=== PATIENT | male | born 1940 | race Two or more races ===

== ENCOUNTER 2016-11-21 19:43 | Inpatient (IN) | payer OTHER ==
[~2016-11-21] VITALS: Ht 170.2 cm; Wt 65.8 kg
[2016-11-21 21:46] LABS: BASOPHILS # (AUTO) 0.1 /CMM (0.0-0.2); BASOPHILS % (AUTO) 0.8 % (0.0-2.0); DIFF TOTAL % 100 %; EOSINOPHILS # (AUTO) 0.1 /CMM (0.0-0.7); EOSINOPHILS % (AUTO) 0.8 % (0.0-6.0); HEMATOCRIT 46 % (39-51); HEMOGLOBIN 15.3 g/dL (13.5-17.5); LYMPHOCYTES # (AUTO) 0.9 /CMM (0.8-4.8); LYMPHOCYTES % (AUTO) 10.8 % (20.0-44.0); MEAN CORPUSCULAR HEMOGLOBIN 31 PG (26.0-33.0); MEAN CORPUSCULAR HGB CONC 33 g/dl (31.0-36.0); MEAN CORPUSCULAR VOLUME 93 fL (80-96); MONOCYTES # (AUTO) 0.5 /CMM (0.1-1.30); MONOCYTES % (AUTO) 6.7 % (2.0-12.0); NEUTROPHILS # (AUTO) 6.4 /CMM (1.8-8.9); NEUTROPHILS % (AUTO) 80.9 % (43.0-81.0); PLATELET COUNT (AUTO) 86 /CMM (150-450); RED BLOOD CELL COUNT(AUTO) 4.98 MIL/uL (4.5-6.0)
[2016-11-21 21:55] LABS: ANION GAP 13 (5-14); CALCIUM, SERUM 8.8 mg/dL (8.5-10.1); CARBON DIOXIDE 24 mmol/L (21-32); CHLORIDE 100 mmol/L (98-107); CREATININE 1.3 mg/dL (0.6-1.3); GLUCOSE 117 mg/dL (74-106); POTASSIUM 3.2 mmol/L (3.5-5.1); SODIUM SERUM 134 mmol/L (136-145); UREA NITROGEN, BLOOD 23 mg/dL (7-18)
[2016-11-21] MEDS ORDERED: ONDANSETRON HCL/PF 4 MG/2 ML VIAL IVP ONE (22:00)
[2016-11-21] MEDS ORDERED: IV NS 0.9% 500 ML BAG IV ONE (22:00)
[2016-11-21] MEDS ORDERED: MORPHINE SULFATE INJ 2 MG/ML DISP.SYRIN IV ONE (22:00)
[2016-11-21 22:01] LABS: ALANINE AMINOTRANSFERASE 37 U/L (12-78); ALBUMIN 3.2 g/dL (3.4-5.0); ASPARTATE AMINOTRANSFERASE 66 U/L (15-37); BILIRUBIN,DIRECT 0.7 mg/dL (0.0-0.2); BILIRUBIN,TOTAL 1.5 mg/dL (0.2-1.0); INDIRECT BILIRUBIN 0.8 mg/dL (0.0-1.1); TOTAL PROTEIN, SERUM 7.3 g/dL (6.4-8.2)
[2016-11-21 22:03] LABS: TROPONIN I < 0.017 ng/mL (0.00-0.056)
[2016-11-21 22:10] LABS: LACTIC ACID 1.1 mmol/L (0.4-2.0)
[2016-11-21] MEDS ORDERED: ONDANSETRON HCL/PF 4 MG/2 ML VIAL ONE (22:27)
[2016-11-21] MEDS ORDERED: IV NS 0.9% 500 ML IV ONE (22:27)
[2016-11-21] MEDS ORDERED: MORPHINE SULFATE INJ 2 MG/ML DISP.SYRIN ONE (22:27)
[2016-11-21 23:21] LABS: KETONES,URINE 1+ (NEGATIVE); LEUKOCYTE ESTERASE ,URINE 2+ (NEGATIVE); PH,URINE 5.5 (5.0-8.0)
[2016-11-21 23:26] LABS: ADD UA MICROSCOPIC YES
[2016-11-21 23:33] LABS: ADD URINE CULTURE YES; RBC,URINE 0-2 /HPF (0-2); WBC,URINE TOO NUMEROUS TO COUN /HPF (0-3)
[2016-11-21] MEDS ORDERED: CEFTRIAXONE 1 G VIAL ONE (23:50)
[2016-11-21] MEDS ORDERED: IV D5W 50 ML IV ONE (23:50)
[2016-11-21] MEDS ORDERED: IV SET PRIMARY 1 EA INFUS.SET MC ONE (23:50)
[2016-11-22] MEDS ORDERED: CEFTRIAXONE 1GM BAG (ER ONLY) 1 GM/50 ML PIGGYBACK IV ONE
[2016-11-22] MEDS ORDERED: MAGNESIUM HYDROXIDE 30 ML UDC PO PRN (00:30)
[2016-11-22] MEDS ORDERED: ONDANSETRON HCL/PF 4 MG/2 ML VIAL IVP PRN (00:30)
[2016-11-22] MEDS ORDERED: ZOLPIDEM TARTRATE 5 MG TABLET PO PRN (00:30)
[2016-11-22] MEDS ORDERED: HYDROCODONE/APAP 5/325MG 1 EACH TABLET PO PRN (00:30)
[2016-11-22] MEDS ORDERED: ACETAMINOPHEN 325 MG TABLET PO PRN (00:30)
[2016-11-22 01:00] VITALS: BP 133/61
[2016-11-22] MEDS ORDERED: POTASSIUM CHLORIDE 20 MEQ TAB.PRT.SR PO ONE ×2 (02:24→02:30)
[2016-11-22] MEDS ORDERED: IV SET PRIMARY PUMP SET 1 EA INFUS.SET MC ONE (02:24)
[2016-11-22] MEDS ORDERED: IV NS 0.9% 1,000 ML ONE (02:24)
[2016-11-22] MEDS: IV NS 0.9% 1,000 ML IV PRN ×2 (02:32→12:56)
[2016-11-22 08:00] VITALS: BP_SYST 126; BP_SYST 143; BP_DIAS 68; BP_DIAS 70
[2016-11-22] MEDS: PANTOPRAZOLE 40 MG TABLET.DR PO SCH (08:10)
[2016-11-22 16:00] VITALS: BP_SYST 112; BP_SYST 143; BP_DIAS 67; BP_DIAS 68
[2016-11-22 20:00] VITALS: BP 132/66
[2016-11-23 04:05] VITALS: BP 151/72
[2016-11-23 07:02] LABS: BASOPHILS % (AUTO) 0.2 % (0.0-2.0); DIFF TOTAL % 100 %; EOSINOPHILS # (AUTO) 0.1 /CMM (0.0-0.7); EOSINOPHILS % (AUTO) 1.2 % (0.0-6.0); HEMATOCRIT 39 % (39-51); HEMOGLOBIN 13.5 g/dL (13.5-17.5); LYMPHOCYTES # (AUTO) 1.4 /CMM (0.8-4.8); LYMPHOCYTES % (AUTO) 24.9 % (20.0-44.0); MEAN CORPUSCULAR HEMOGLOBIN 31 PG (26.0-33.0); MEAN CORPUSCULAR HGB CONC 34 g/dl (31.0-36.0); MEAN CORPUSCULAR VOLUME 92 fL (80-96); MONOCYTES # (AUTO) 0.9 /CMM (0.1-1.30); NEUTROPHILS # (AUTO) 3.1 /CMM (1.8-8.9); NEUTROPHILS % (AUTO) 56.7 % (43.0-81.0); PLATELET COUNT (AUTO) 98 /CMM (150-450); RED BLOOD CELL COUNT(AUTO) 4.28 MIL/uL (4.5-6.0); WHITE BLOOD COUNT (AUTO) 5.4 K/uL (4.3-11.0)
[2016-11-23 07:16] LABS: CALCIUM, SERUM 7.9 mg/dL (8.5-10.1); CREATININE 0.6 mg/dL (0.6-1.3); PHOSPHORUS 2.6 mg/dL (2.5-4.9); POTASSIUM 3.5 mmol/L (3.5-5.1)
[2016-11-23 08:00] VITALS: BP 134/64
[2016-11-23 08:14] LABS: BAND % (MANUAL) 1 % (0.0-5.0); LYMPHOCYTES % (MANUAL) 20 % (16-48); PLATELET ESTIMATE DECREASED
[2016-11-23] MEDS: PANTOPRAZOLE 40 MG TABLET.DR PO SCH (08:37)
[2016-11-23] MEDS ORDERED: MAGNESIUM OXIDE 400 MG TABLET PO ONE (12:00)
[2016-11-23 12:03] VITALS: BP 128/60
[2016-11-23 16:00] VITALS: BP 131/58
[2016-11-23 20:00] VITALS: BP 135/71
[2016-11-23] MEDS ORDERED: CEFTRIAXONE 1 G in IV D5W 50 ML IV SCH (23:00)
[2016-11-23] MEDS ORDERED: SECONDARY IV SET 1 EA INFUS.SET MC ONE (23:35)
[2016-11-24 08:00] VITALS: BP 110/70
[2016-11-24] MEDS: PANTOPRAZOLE 40 MG TABLET.DR PO SCH (08:23)
[2016-11-24 16:00] VITALS: BP 138/70
[2016-11-24 20:00] VITALS: BP 147/72
[2016-11-25 04:00] VITALS: BP 143/80
[2016-11-25 08:00] VITALS: BP 168/75
[2016-11-25] MEDS: SULFAMETH/TRIMETH 800/160 MG 1 UDTAB TABLET PO SCH ×2 (08:28→21:13)
[2016-11-25] MEDS: PANTOPRAZOLE 40 MG TABLET.DR PO SCH (08:28)
[2016-11-25 16:00] VITALS: BP 153/66
[2016-11-25 20:00] VITALS: BP 152/72
[2016-11-26 04:00] VITALS: BP 138/70
[2016-11-26 08:00] VITALS: BP 139/72
[2016-11-26] MEDS: SULFAMETH/TRIMETH 800/160 MG 1 UDTAB TABLET PO SCH (08:31)
[2016-11-26] MEDS: PANTOPRAZOLE 40 MG TABLET.DR PO SCH (08:31)
[2016-11-26 16:00] VITALS: BP 130/62
== END 2016-11-26 18:27 | disposition home or self-care (01) | DRG 542 ==
LOC: ER 19:46 → MEDSG1 23:12
PROVIDERS: ADMIT Nurse Practitioner Acute Care; ATTEND Nurse Practitioner Acute Care
DX: M48.56XA Collapsed vertebra, not elsewhere classified, lumbar region, initial encounter for fracture (principal); N17.0 Acute kidney failure with tubular necrosis; G93.41 Metabolic encephalopathy; N39.0 Urinary tract infection, site not specified; E44.1 Mild protein-calorie malnutrition; E87.1 Hypo-osmolality and hyponatremia; B96.20 Unspecified Escherichia coli [E. coli] as the cause of diseases classified elsewhere; E83.42 Hypomagnesemia; E87.6 Hypokalemia; M48.06 Spinal stenosis, lumbar region; R29.6 Repeated falls; Z87.891 Personal history of nicotine dependence; D69.6 Thrombocytopenia, unspecified; E88.09 Other disorders of plasma-protein metabolism, not elsewhere classified; Z68.22 Body mass index [BMI] 22.0-22.9, adult; F10.21 Alcohol dependence, in remission; W19.XXXA Unspecified fall, initial encounter; Y93.9 Activity, unspecified; Y92.009 Unspecified place in unspecified non-institutional (private) residence as the place of occurrence of the external cause; Y99.9 Unspecified external cause status
CPT/HCPCS: 36415; 70450-TC; 71010-TC; 72131-TC; 72148-TC; 72192-TC; 80048-TC; 80061-TC; 80076-TC; 81000-TC; 83605-TC; 83735-TC; 84100-TC; 84484-TC; 85025-TC; 87040-TC; 87081-TC; 87086-TC; 87186-TC; 94799-TC; 97001-TC; 97116-TC; 97530-TC; A4606; J0696; J2270; J2405; J7030; J7040; J7060; Z7610

== ENCOUNTER 2018-01-12 12:15 | Inpatient (IN) | payer OTHER ==
[2018-01-12] VITALS (15 sets, daily range): BP systolic 140–186; BP diastolic 59–105
[~2018-01-12] VITALS: Ht 182.9 cm; Wt 82.8 kg
--- NOTE | 2018-01-12 12:18 | NUR ---
AAOX3, BIBRA 80 FROM HOME C/O R HIP PAIN, +SHORTENING, S/P TRIPPED AND FELL, -KO. 8MG IVP MORPHINE GIVEN IN THE FIELD. SKIN IS WARM AND DRY. PLACED ON THE MONITOR. DR MATHEWS AT FOR EVAL.
[2018-01-12] MEDS ORDERED: MORPHINE SULFATE INJ 4 MG/ML DISP.SYRIN ONE (12:22)
[2018-01-12] MEDS ORDERED: ONDANSETRON HCL/PF 4 MG/2 ML VIAL ONE ×2 (12:22→13:48)
[2018-01-12] MEDS ORDERED: LIDOCAINE 2% JEL UROJET 10 ML MM ONE (12:27)
[2018-01-12] MEDS ORDERED: MORPHINE SULFATE INJ 2 MG/ML DISP.SYRIN IV ONE (12:30)
[2018-01-12] MEDS ORDERED: ONDANSETRON HCL/PF 4 MG/2 ML VIAL IVP ONE (12:30)
[2018-01-12 12:48] LABS: BASOPHILS # (AUTO) 0.2 /CMM (0.0-0.2); BASOPHILS % (AUTO) 1.8 % (0.0-2.0); HEMATOCRIT 42 % (39-51); HEMOGLOBIN 14.1 g/dL (13.5-17.5); LYMPHOCYTES # (AUTO) 1.1 /CMM (0.8-4.8); LYMPHOCYTES % (AUTO) 10.3 % (20.0-44.0); MEAN CORPUSCULAR HGB CONC 34 g/dl (31.0-36.0); MEAN CORPUSCULAR VOLUME 87 fL (80-96); MONOCYTES # (AUTO) 0.4 /CMM (0.1-1.30); NEUTROPHILS # (AUTO) 8.8 /CMM (1.8-8.9); NEUTROPHILS % (AUTO) 83.9 % (43.0-81.0); PLATELET COUNT (AUTO) 185 /CMM (150-450); RDW COEFFICIENT OF VARIATION 12.9 (11.5-15.0); RED BLOOD CELL COUNT(AUTO) 4.84 MIL/uL (4.5-6.0); WHITE BLOOD COUNT (AUTO) 10.5 K/uL (4.3-11.0)
--- NOTE | 2018-01-12 12:55 | NUR ---
PATRICIA BEARDEN, MELBA CÁRDENAS PHARMACEUTICAL SCIENTIST
[2018-01-12 12:58] LABS: CALCIUM, SERUM 8.7 mg/dL (8.5-10.1); CARBON DIOXIDE 23 mmol/L (21-32); CHLORIDE 103 mmol/L (98-107); CREATININE 0.7 mg/dL (0.6-1.3); GLUCOSE 156 mg/dL (74-106); POTASSIUM 3.4 mmol/L (3.5-5.1); SODIUM SERUM 140 mmol/L (136-145); UREA NITROGEN, BLOOD 10 mg/dL (7-18)
[2018-01-12 13:01] LABS: INR 1.02 (0.85-1.15)
--- NOTE | 2018-01-12 13:02 | NUR ---
EPIC PAGED, TELEVISION NEWSCAST DIRECTOR
[2018-01-12 13:03] LABS: ALANINE AMINOTRANSFERASE 14 U/L (12-78); ALKALINE PHOSPHATASE 77 U/L (46-116); ASPARTATE AMINOTRANSFERASE 25 U/L (15-37); BILIRUBIN,DIRECT 0.2 mg/dL (0.0-0.2); BILIRUBIN,TOTAL 0.6 mg/dL (0.2-1.0)
[2018-01-12 13:05] LABS: TROPONIN I < 0.017 ng/mL (0.00-0.056)
--- NOTE | 2018-01-12 13:25 | NUR ---
MS 117-2, ALLISON IN THE NURSE
[2018-01-12] MEDS ORDERED: ONDANSETRON HCL/PF - ER 4 MG/2 ML VIAL IV ONE (13:30)
[2018-01-12] MEDS ORDERED: OYSCO-500 TABLET (13:56)
[2018-01-12] MEDS ORDERED: [UNRECOGNIZED DRUG - OTHER] (13:56)
[2018-01-12] MEDS ORDERED: FLUZONE HIGH-DOSE 2017-18 SYR (13:56)
--- NOTE | 2018-01-12 14:00 | NUR ---
REPORT GIVEN TO ALLISON COURTNEY FOR CONTINUITY OF CARE
--- NOTE | 2018-01-12 14:30 | NUR ---
RN NOTES RECEIVED PT FROM ER, A&0X3 PRIMARILY CROATIAN SPEAKING BUT UNDERSTANDS NIGERIEN. ON 2L NC SATING WELL NO SOB. COMPLAINING OF R HIP PAIN 12/23. DAUGHTER AT BEDSIDE. PT PLACED IN BED, MADE COMFORTABLE, BED ALARM ON, CALL LIGHT WITHIN REACH, SIDE RAILS UP, WILL CONT TO BENJAMIN.
[2018-01-12] MEDS ORDERED: IV NS 0.9% 1,000 ML IV PRN (14:38)
[2018-01-12] MEDS ORDERED: ACETAMINOPHEN 325 MG TABLET PO PRN (15:00)
[2018-01-12] MEDS ORDERED: ZOLPIDEM TARTRATE 5 MG TABLET PO PRN (15:00)
[2018-01-12] MEDS ORDERED: MAGNESIUM HYDROXIDE 30 ML UDC PO PRN (15:00)
[2018-01-12] MEDS ORDERED: Z GUARD REMEDY 2 OZ OINT TP PRN (15:00)
[2018-01-12] MEDS ORDERED: MAG HYDROX/AL HYDROX/SIMETH 30 ML UDC PO PRN (15:00)
[2018-01-12] MEDS ORDERED: Thiamine 100 MG in IV D5W 50 ML IV SCH (16:00)
--- NOTE | 2018-01-12 16:21 | NUR ---
RN NOTES PER DR MARY, ORTHO MD, HE SPOKE WITH PTS DAUGHTER AND SHE STATED PT DRINKS ALCOHOL EVERYDAY "ALL DAY". ER NOT MADE AWARE. PER PT NEEDS TO ME TRANSFERRED TO ICU FOR CLOSER MONITORING BEFORE PT BEGINS WITHDRAWING. PT BP 180S. DR VASQUEZ MADE AWARE.
[2018-01-12] MEDS: POTASSIUM CHLORIDE 20 MEQ TAB.PRT.SR PO SCH ×2 (16:38→16:55)
[2018-01-12] MEDS: CHLORDIAZEPOXIDE HCL 25 MG CAPSULE PO SCH (16:39)
[2018-01-12] MEDS: ENOXAPARIN SODIUM 40 MG/0.4 ML DISP.SYRIN SQ SCH (16:40)
[2018-01-12] MEDS: hydrALAZINE HCL IV 20 MG VIAL IV PRN ×2 (16:42→22:08)
[2018-01-12 16:51] LABS: THYROID STIMULATING HORMONE 3.129 uIU/mL (0.358-3.74)
--- NOTE | 2018-01-12 16:58 | NUR ---
RN NOTES REPORT GIVEN TO SANDRITA TO BE TRANSFERRED TO ICU.
[2018-01-12] MEDS ORDERED: LORAZEPAM INJ 2 MG/ML VIAL IV PRN (17:00)
--- NOTE | 2018-01-12 17:07 | NUR ---
INITIAL IT SUPPORT SPECIALIST NOTE PT AWAKE AND ALERT, FRENCH SPEAKING, C/O PAIN OVER RIGHT HIP/THIGH AREA. TRANSFERRED TO ICU VIA MONITORED BED WITH RN AT BEDSIDE. ST ON TELE. ZARAGOZA IN PLACE DRAINING CLOUDY, FERNIE COLORED URINE. LEFT HAND #20 C/D/I/PATENT IVF INFUSING. ADDITIONAL LEFT AC #20 IV INSERTED. PT TO UNDERGO RIGHT HIP SURGERY BY DR. GIRON TOMORROW, CONSENT SIGNED BY PT. SBP ELEVATED GIVEN HYDRALAZINE PRIOR TO TRANSFER. NO PAIN MEDICATIONS GIVEN SINCE ADMISSION. DR. VASQUEZ AWARE. WILL CONTINUE TO MONITOR PT FOR SAFETY AND COMFORT. CALL LIGHT WITHIN REACH. BED IN LOW AND LOCKED POSITION. PT'S DAUGHTERS AT BEDSIDE.
[2018-01-12 17:27] LABS: MAGNESIUM 1.7 mg/dL (1.8-2.4); PHOSPHORUS 2.1 mg/dL (2.5-4.9)
[2018-01-12] MEDS: Magnesium 1GM/D5W 100ML PREMIX 100 ML IV SCH ×2 (18:07→19:45)
[2018-01-12] MEDS: FENTANYL PF 100MCG/2ML AMPUL IV PRN ×2 (18:30→23:15)
[2018-01-12] MEDS: IV NS 0.9% 1,000 ML IV PRN (18:31)
[2018-01-12 19:09] LABS: BILIRUBIN,DIRECT 0.3 mg/dL (0.0-0.2)
[2018-01-12 19:10] LABS: ALBUMIN 3.1 g/dL (3.4-5.0)
--- NOTE | 2018-01-12 19:30 | NUR ---
SENIOR SALES MANAGER INITIAL NOTES RECEIVED REPORT FROM NURSE WHIPPLE. RECEIVED PATIENT IN BED, AWAKE, ALERT AND ORIENTED X3 ABLE TO VERBALIZE NEEDS, MOSTLY TURKMEN SPEAKING, ABLE TO UNDERSTAND LEBANESE. BREATHING IS EVEN AND NONLABORED WHILE ON O2 VIA NC @ 2LPM, TOLERATING WELL, FREE FROM ANY S/S OF RESPIRATORY DISTRESS. ON TELEMETRY MONITORING, REVEALING SINUS TACHYCARDIA, HR IN THE LOW 100s. IV SITES PATENT AND INTACT, FLUSHED WITH NS, FREE FROM ANY S/S OF INFILTRATION OR PHLEBITIS. CALL LIGHT LEFT WITHIN EASY REACH, BED IN LOWEST AND LOCKED POSITION. WILL CONTINUE TO CLOSELY MONITOR THE PATIENT.
[2018-01-12] MEDS: ONDANSETRON HCL/PF 4 MG/2 ML VIAL IVP PRN (19:45)
[2018-01-12] MEDS: HYDROCODONE/APAP 5/325MG 1 EACH TABLET PO PRN (19:45)
--- NOTE | 2018-01-12 19:45 | NUR ---
MARBLE AND GRANITE POLISHER NOTES ZOFRAN, NORCO, AND MAGNESIUM SULFATE IV ADMINISTERED PRESCRIBED. COMPUTER SHUT OFF WHILE SAVING. MEDICATION MANUALLY SCANNED.
[2018-01-13] VITALS (25 sets, daily range): BP systolic 112–174; BP diastolic 64–95
--- NOTE | 2018-01-13 | NUR ---
PURCHASING OFFICER NOTES PATIENT RESTING IN BED, APPEARS COMFORTABLE, REPORTS THAT PAIN IS WELL MANAGED AT THIS TIME, MEDICATION EFFECTIVE. WILL CONTINUE TO CLOSELY MONITOR
[2018-01-13] MEDS: IV NS 0.9% 1,000 ML IV PRN ×3 (01:29→23:34)
[2018-01-13] MEDS: ONDANSETRON HCL/PF 4 MG/2 ML VIAL IVP PRN (01:44)
[2018-01-13] MEDS: HYDROCODONE/APAP 5/325MG 1 EACH TABLET PO PRN (01:44)
[2018-01-13 04:49] LABS: BASOPHILS % (AUTO) 0.3 % (0.0-2.0); HEMATOCRIT 38 % (39-51); HEMOGLOBIN 12.9 g/dL (13.5-17.5); LYMPHOCYTES # (AUTO) 1.2 /CMM (0.8-4.8); LYMPHOCYTES % (AUTO) 14.1 % (20.0-44.0); MEAN CORPUSCULAR HGB CONC 34 g/dl (31.0-36.0); MEAN CORPUSCULAR VOLUME 87 fL (80-96); MONOCYTES # (AUTO) 0.5 /CMM (0.1-1.30); MONOCYTES % (AUTO) 6.1 % (2.0-12.0); NEUTROPHILS # (AUTO) 6.8 /CMM (1.8-8.9); NEUTROPHILS % (AUTO) 79.5 % (43.0-81.0); PLATELET COUNT (AUTO) 134 /CMM (150-450); RDW COEFFICIENT OF VARIATION 13.9 (11.5-15.0); WHITE BLOOD COUNT (AUTO) 8.6 K/uL (4.3-11.0)
[2018-01-13 05:09] LABS: INR 1.03 (0.87-1.13)
[2018-01-13 05:20] LABS: CALCIUM, SERUM 8.4 mg/dL (8.5-10.1); CARBON DIOXIDE 27 mmol/L (21-32); CHLORIDE 105 mmol/L (98-107); CREATININE 0.6 mg/dL (0.6-1.3); GLUCOSE 115 mg/dL (74-106); MAGNESIUM 2.3 mg/dL (1.8-2.4); PHOSPHORUS 2.2 mg/dL (2.5-4.9); POTASSIUM 3.8 mmol/L (3.5-5.1); SODIUM SERUM 139 mmol/L (136-145); UREA NITROGEN, BLOOD 11 mg/dL (7-18)
[2018-01-13] MEDS: hydrALAZINE HCL IV 20 MG VIAL IV PRN ×2 (06:12→16:18)
--- NOTE | 2018-01-13 06:30 | NUR ---
INPATIENT CARE MANAGER RN NOTES ONLY PARTIAL BED BATH RENDERED DUE TO PATIENT'S INABILITY TO TOLERATE MOVEMENT DUE TO EXTREME PAIN. PATIENT MEDICATED POST BED BATH, OBSERVED SLEEPING SHORTLY AFTER, APPEARED COMFORTABLE. PATIENT KEPT NPO SINCE MN, SURGERY SCHEDULED THIS AFTERNOON @ 1230. WILL ENDORSE THE PATIENT TO THE AM SHIFT NURSE FOR CONTINUITY OF CARE
[2018-01-13] MEDS: FENTANYL PF 100MCG/2ML AMPUL IV PRN ×4 (06:34→23:35)
[2018-01-13] MEDS ORDERED: POTASSIUM PHOSPHATE MM 15 MMOL in IV D5W 250 ML IV SCH (07:30)
--- NOTE | 2018-01-13 07:42 | NUR ---
INITIAL MAINSPRING STRIP INSPECTOR NOTE RCVD PT AWAKE AND ALERT, SHOWING NO S/O DISTRESS, PT C/O PAIN OVER RIGHT HIP AREA, MEDICATED ORDERED. ST ON TELE. TOLERATING O2 VIA NC. ZARAGOZA TO GRAVITY DRAINING CLOUDY, YELLOW URINE. IV SITES C/D/I/PATENT. NO S/O INFILTRATION/PHLEBITIS OBSERVED IVF INFUSING. NPO FOR SCHEDULED SURGERY TODAY. WILL CONTINUE TO MONITOR PT FOR SAFETY AND COMFORT. CALL LIGHT WITHIN REACH. BED IN LOW AND LOCKED POSITION.
[2018-01-13] MEDS: ENOXAPARIN SODIUM 40 MG/0.4 ML DISP.SYRIN SQ SCH (08:03)
[2018-01-13] MEDS: CHLORDIAZEPOXIDE HCL 25 MG CAPSULE PO SCH ×2 (08:03→17:40)
[2018-01-13] MEDS: POTASSIUM PHOSPHATE MM 7.5 MMOL in IV D5W 100 ML IV SCH ×2 (08:12→11:55)
--- NOTE | 2018-01-13 10:21 | NUR ---
WOUND CARE CONSULT: PT REFUSED SKIN ASSESSMENT. ALL SKIN PROTECTION MEASURES IN PLACE AND DISCUSSED WITH NURSING STAFF. WILL SEE PRN. CURRENT JUDE SCORE IS 13. MD IN AGREEMENT WITH PLAN OF CARE.
[2018-01-13] MEDS ORDERED: BACITRACIN 50000 UNITS/VIAL ONE ×2 (10:59→14:17)
[2018-01-13] MEDS ORDERED: BUPIVACAINE 0.25% 75 MG/30 ML VIAL IJ ONE (11:02)
[2018-01-13 11:08] LABS: APPEARANCE,URINE SL CLOUDY (CLEAR); BILIRUBIN,URINE NEGATIVE (NEGATIVE); BLOOD, URINE 1+ Ery/uL (NEGATIVE); COLOR,URINE YELLOW (YELLOW); KETONES,URINE TRACE (NEGATIVE); LEUKOCYTE ESTERASE ,URINE TRACE (NEGATIVE); NITRITE, URINE POSITIVE (NEGATIVE); PH,URINE 7.5 (5.0-8.0); PROTEIN,URINE 1+ mg/dl (NEGATIVE); UGLUCOSE NEGATIVE (NEGATIVE)
--- NOTE | 2018-01-13 11:15 | NUR ---
RN NOTE PATIENT RECEIVED DIRECT TRANSFER FROM ICU. REPORT WAS GIVEN TO ME BY SANDRITA. PATIENT IS AWAKE AND ALERT. DAUGHTER AT BEDSIDE. NPO STATUS PENDING HIP SURGERY SCHEDULED FOR 1230 THIS AFTERNOON.
--- NOTE | 2018-01-13 11:17 | NUR ---
TRANSFER TO [facility] RN NOTE PT TRANSFERRED TO [facility] VIA PROTOCOL WITH RN AT BEDSIDE. PT'S DAUGHTER AT BEDSIDE. NO S/O DISTRESS OBSERVED. PT STATES THAT HAS SOME PAIN BUT IN NO NEED OF PAIN MEDICATION BEFORE TRANSFER. DR. GIRON CAME TO ASSESS PT EARLIER TODAY, HE WAS INFORMED OF MEDICATIONS GIVEN UP TO THAT POINT INCLUDING ATIVAN FOR LEFT ARM TREMOR. PT'S CARE ENDORSED TO SHERWIN WHELAN.
[2018-01-13 11:20] LABS: BACTERIA,URINE Many /HPF (None Seen)
[2018-01-13 11:21] LABS: SQUAMOUS EPITHELIAL CELL,UR Rare /HPF (None Seen)
--- NOTE | 2018-01-13 12:30 | NUR ---
RN NOTE PATIENT LEFT FOR SURGERY VIA GURNEY.
[2018-01-13] MEDS ORDERED: MORPHINE SULFATE INJ 2 MG/ML DISP.SYRIN ONE (15:01)
[2018-01-13] MEDS ORDERED: TRAMADOL HCL 50 MG TABLET PO PRN (15:30)
[2018-01-13] MEDS: THIAMINE HCL 100 MG TABLET PO SCH (16:17)
--- NOTE | 2018-01-13 16:20 | NUR ---
RN NOTE PATIENT BACK FROM SURGERY. VITALS TAKEN. MEDS GIVEN.
--- NOTE | 2018-01-13 19:30 | NUR ---
STREETCAR MOTORMAN NOTES, RECEIVED PATIENT IN BED, SLEEPING AT THIS TIME, BREATHING EVEN AND UNLABORED, NO SOB/ACUTE DISTRESS NOTED, LEFT AC IV ACCESS INTACT AND PATENT, IVF INFUSING WELL AND PATIENT TOLERATED WEILL, DRY AND CLEAN, WILL CONTINUE TO MONITOR AND ADMINISTER MEDICATIONS ORDERED, CALL LIGHT W./I REACH. FAMILY AT BEDSIDE.
[2018-01-13] MEDS: CEFAZOLIN SODIUM 2 GM in IV SODIUM CHLORIDE 0.9% 50 ML IV SCH (23:34)
[2018-01-14] VITALS (7 sets, daily range): BP systolic 135–180; BP diastolic 60–88
[2018-01-14] MEDS: HYDROCODONE/APAP 5/325MG 1 EACH TABLET PO PRN ×3 (02:28→23:41)
[2018-01-14 06:39] LABS: HEMATOCRIT 34 % (39-51); HEMOGLOBIN 11.5 g/dL (13.5-17.5); LYMPHOCYTES % (AUTO) 7.1 % (20.0-44.0); MEAN CORPUSCULAR HGB CONC 34 g/dl (31.0-36.0); MEAN CORPUSCULAR VOLUME 89 fL (80-96); MONOCYTES # (AUTO) 0.2 /CMM (0.1-1.30); MONOCYTES % (AUTO) 1.2 % (2.0-12.0); NEUTROPHILS # (AUTO) 13.2 /CMM (1.8-8.9); NEUTROPHILS % (AUTO) 91.7 % (43.0-81.0); PLATELET COUNT (AUTO) 102 /CMM (150-450); RDW COEFFICIENT OF VARIATION 14.3 (11.5-15.0); RED BLOOD CELL COUNT(AUTO) 3.83 MIL/uL (4.5-6.0); WHITE BLOOD COUNT (AUTO) 14.4 K/uL (4.3-11.0)
[2018-01-14] MEDS: CEFAZOLIN SODIUM 2 GM in IV SODIUM CHLORIDE 0.9% 50 ML IV SCH ×2 (06:40→15:52)
--- NOTE | 2018-01-14 06:40 | NUR ---
N TELE NOTES, PATIENT IN BED, AWAKE AT THIS TIME, BREATHING EVEN AND UNLABORED, NO SOB/ACUTE DISTRESS NOTED, LEFT AC IV ACCESS INTACT AND PATENT, IVF INFUSING WELL AND PATIENT TOLERATED WEILL, MEDICATION FOR PAIN ADMINISTERED ORDERED, DRY AND CLEAN, MEDICATIONS FOR PAIN ADMINISTERED ORDERED, CALL LIGHT W./I REACH. WILL ENDORSE CONTINUITY OF CARE TO ONCOMING NURSE.
[2018-01-14] MEDS: FENTANYL PF 100MCG/2ML AMPUL IV PRN (06:48)
[2018-01-14 07:15] LABS: ALANINE AMINOTRANSFERASE 12 U/L (12-78); ALBUMIN 2.3 g/dL (3.4-5.0); ALKALINE PHOSPHATASE 64 U/L (46-116); ASPARTATE AMINOTRANSFERASE 24 U/L (15-37); BILIRUBIN,TOTAL 0.9 mg/dL (0.2-1.0); CARBON DIOXIDE 25 mmol/L (21-32); CHLORIDE 104 mmol/L (98-107); CREATININE 0.6 mg/dL (0.6-1.3); GLUCOSE 123 mg/dL (74-106); POTASSIUM 3.8 mmol/L (3.5-5.1); SODIUM SERUM 136 mmol/L (136-145); TOTAL PROTEIN, SERUM 6.5 g/dL (6.4-8.2); UREA NITROGEN, BLOOD 8 mg/dL (7-18)
--- NOTE | 2018-01-14 07:40 | NUR ---
RN NOTES RECEIVED PATIENT AWAKE IN BED EASILY AROUSABLE DURING CARE, RESPIRATIONS EVEN AND UNLABORED, DENIES ANY PAIN OR DISCOMFORT AT THIS TIME. IV ACCESS PATENT AND INTACT NO REDNESS OR INFILTRATION NOTED, FC IN PLACE AND DRAINING. WILL CONTINUE TO MONITOR
[2018-01-14] MEDS: CHLORDIAZEPOXIDE HCL 25 MG CAPSULE PO SCH ×2 (09:22→17:22)
[2018-01-14] MEDS: CALCIUM CARB 600MG /VIT D 1 EACH TABLET PO SCH (09:22)
[2018-01-14] MEDS: ENOXAPARIN SODIUM 40 MG/0.4 ML DISP.SYRIN SQ SCH (09:28)
[2018-01-14] MEDS ORDERED: ERGOCALCIFEROL (VITAMIN D 2) 50,000 UNIT CAPSULE PO SCH (10:00)
[2018-01-14] MEDS: NEUTRA PHOS 1 POWD.PACKET PO SCH ×2 (11:32→17:22)
[2018-01-14] MEDS: THIAMINE HCL 100 MG TABLET PO SCH (17:22)
[2018-01-14] MEDS: IV NS 0.9% 1,000 ML IV PRN (17:22)
--- NOTE | 2018-01-14 19:40 | NUR ---
RN NOTES PATIENT AWAKE IN BED EASILY AROUSABLE DURING CARE, RESPIRATIONS EVEN AND UNLABORED, DENIES ANY PAIN OR DISCOMFORT AT THIS TIME. IV ACCESS PATENT AND INTACT NO REDNESS OR INFILTRATION NOTED, FC IN PLACE AND DRAINING. ENDORSED TO NEXT SHIFT FOR CONTINUITY OF CARE
--- NOTE | 2018-01-14 20:00 | NUR ---
RN INITIAL NOTES, RECEIVED PATIENT IN BED, SLEEPING AT THIS TIME, BREATHING EVEN AND UNLABORED, NO SOB/ACUTE DISTRESS NOTED, LEFT AC IV ACCESS INTACT AND PATENT, IVF INFUSING WELL AND PATIENT TOLERATED WEILL, DRY AND CLEAN, WILL CONTINUE TO MONITOR AND ADMINISTER MEDICATIONS ORDERED. BED LOCKED IN THE LOWEST POSITION ,CALL LIGHT W./I REACH. WILL ENDORSE TO AM RN.
[2018-01-15] VITALS: BP_SYST 151; BP_SYST 180; BP_DIAS 78; BP_DIAS 80
[2018-01-15 04:00] VITALS: BP_SYST 154; BP_SYST 180; BP_DIAS 80
[2018-01-15] MEDS: IV NS 0.9% 1,000 ML IV PRN (05:16)
[2018-01-15 06:38] LABS: BASOPHILS % (AUTO) 0.3 % (0.0-2.0); EOSINOPHILS % (AUTO) 0.3 % (0.0-6.0); HEMATOCRIT 30 % (39-51); LYMPHOCYTES # (AUTO) 1.7 /CMM (0.8-4.8); LYMPHOCYTES % (AUTO) 21.8 % (20.0-44.0); MEAN CORPUSCULAR HGB CONC 34 g/dl (31.0-36.0); MEAN CORPUSCULAR VOLUME 89 fL (80-96); MONOCYTES # (AUTO) 0.5 /CMM (0.1-1.30); MONOCYTES % (AUTO) 6.3 % (2.0-12.0); NEUTROPHILS # (AUTO) 5.4 /CMM (1.8-8.9); NEUTROPHILS % (AUTO) 71.3 % (43.0-81.0); PLATELET COUNT (AUTO) 92 /CMM (150-450); RDW COEFFICIENT OF VARIATION 13.9 (11.5-15.0); RED BLOOD CELL COUNT(AUTO) 3.31 MIL/uL (4.5-6.0); WHITE BLOOD COUNT (AUTO) 7.6 K/uL (4.3-11.0)
--- NOTE | 2018-01-15 06:40 | NUR ---
RN CLOSING NOTES NO CHANGE IN PTS CONDITION OVER NIGHT. PT REQUESTED PAIN MEDICATION ONCE OVER NIGHT. ALL MEDS GIVEN, ALL NEEDS ATTENDED.
[2018-01-15 07:01] LABS: CALCIUM, SERUM 7.4 mg/dL (8.5-10.1); CARBON DIOXIDE 26 mmol/L (21-32); CHLORIDE 104 mmol/L (98-107); CREATININE 0.6 mg/dL (0.6-1.3); GLUCOSE 93 mg/dL (74-106); POTASSIUM 3.3 mmol/L (3.5-5.1); SODIUM SERUM 137 mmol/L (136-145); UREA NITROGEN, BLOOD 8 mg/dL (7-18)
--- NOTE | 2018-01-15 07:34 | NUR ---
MS RN OPENING NOTE RECEIVED BEDSIDE SBAR REPORT. PATIENT IN BED RESTING NO SOB OR ACUTE DISTRESS NOTED. PATIENT ALERT, ORIENTED X3, URDU SPEAKING. PATIENT IS BED. BED IS LOCKED IN LOWEST POSITION, SIDE RAILS UP X3, BED ALARM IS ON. CALL LIGHT WITHIN REACH. ALL NEEDS ARE MET. WILL CONTINUE TO ASSESS/MONITOR.
[2018-01-15 08:00] VITALS: BP 152/67
[2018-01-15 08:33] LABS: LYMPHOCYTES % (MANUAL) 19 % (16-48); MONOCYTES % (MANUAL) 3 % (0-11.0); NEUTROPHILS % (MANUAL) 78 (42-76)
[2018-01-15] MEDS ORDERED: FUROSEMIDE 20 MG/2 ML VIAL IV ONE (09:30)
[2018-01-15] MEDS ORDERED: POTASSIUM PHOSPHATE MM 15 MMOL in IV D5W 250 ML IV SCH (09:30)
[2018-01-15] MEDS: CALCIUM CARB 600MG /VIT D 1 EACH TABLET PO SCH (09:44)
[2018-01-15] MEDS: CHLORDIAZEPOXIDE HCL 25 MG CAPSULE PO SCH ×2 (09:44→16:41)
[2018-01-15] MEDS: FENTANYL PF 100MCG/2ML AMPUL IV PRN ×2 (09:46→19:36)
[2018-01-15] MEDS: ENOXAPARIN SODIUM 40 MG/0.4 ML DISP.SYRIN SQ SCH (09:47)
[2018-01-15] MEDS: POTASSIUM CHLORIDE 20 MEQ TAB.PRT.SR PO SCH ×2 (12:50→12:51)
[2018-01-15] MEDS: POTASSIUM PHOSPHATE MM 7.5 MMOL in IV D5W 100 ML IV SCH ×2 (12:50→16:34)
[2018-01-15] MEDS: HYDROCODONE/APAP 5/325MG 1 EACH TABLET PO PRN ×2 (12:51→16:37)
--- NOTE | 2018-01-15 13:09 | NUR ---
PATIENT REPORTED PAIN. NORCO ADMINISTERED ORDERED.
--- NOTE | 2018-01-15 15:02 | NUR ---
Came to administer at 1358. pateint stated that previous dose burmed and interferred with his sleep. asked to start infusin after he wakes up from his nap.
[2018-01-15 16:00] VITALS: BP 144/75
[2018-01-15] MEDS: THIAMINE HCL 100 MG TABLET PO SCH (16:34)
--- NOTE | 2018-01-15 16:44 | NUR ---
reported pain 10/10 in right hip. administered norco as ordered
--- NOTE | 2018-01-15 19:15 | NUR ---
MS RN CLOSING NOTE GAVE BEDSIDE SBAR REPORT. PATIENT IN BED RESTING NO SOB OR ACUTE DISTRESS NOTED. PATIENT ALERT, ORIENTED X3, GEORGIAN SPEAKING. PATIENT IS BED. BED IS LOCKED IN LOWEST POSITION, SIDE RAILS UP X3, BED ALARM IS ON. CALL LIGHT WITHIN REACH. ALL NEEDS ARE MET. WILL ENDORSE TO PENS AND PENCILS REPAIRER FOR HUANG.
[2018-01-15 20:00] VITALS: BP 122/66
--- NOTE | 2018-01-15 22:07 | NUR ---
RN NOTE PATIENT WILL BE UNDER CARE OF PRO COURTNEY
--- NOTE | 2018-01-15 22:10 | NUR ---
RN NOTES RECEIVED PATIENT IN BED WITH NO DISTRESS NOTED. NO COMPLAINT OF PAIN OR DISCOMFORT. ALERT AND ORIENTED. BREATHING EVEN AND UNLABORED. WILL CONTINUE TO MONITOR
[2018-01-16] VITALS: BP 154/71
[2018-01-16 04:00] VITALS: BP 137/55
[2018-01-16 06:26] LABS: BASOPHILS % (AUTO) 0.2 % (0.0-2.0); EOSINOPHILS % (AUTO) 0.4 % (0.0-6.0); HEMATOCRIT 30 % (39-51); HEMOGLOBIN 10.4 g/dL (13.5-17.5); LYMPHOCYTES # (AUTO) 1.8 /CMM (0.8-4.8); LYMPHOCYTES % (AUTO) 19.6 % (20.0-44.0); MEAN CORPUSCULAR HGB CONC 34 g/dl (31.0-36.0); MEAN CORPUSCULAR VOLUME 89 fL (80-96); MONOCYTES # (AUTO) 0.7 /CMM (0.1-1.30); MONOCYTES % (AUTO) 8.1 % (2.0-12.0); NEUTROPHILS # (AUTO) 6.5 /CMM (1.8-8.9); NEUTROPHILS % (AUTO) 71.7 % (43.0-81.0); PLATELET COUNT (AUTO) 123 /CMM (150-450); RDW COEFFICIENT OF VARIATION 14.2 (11.5-15.0); RED BLOOD CELL COUNT(AUTO) 3.41 MIL/uL (4.5-6.0); WHITE BLOOD COUNT (AUTO) 9.1 K/uL (4.3-11.0)
[2018-01-16 06:48] LABS: CARBON DIOXIDE 28 mmol/L (21-32); CHLORIDE 100 mmol/L (98-107); CREATININE 0.7 mg/dL (0.6-1.3); GLUCOSE 105 mg/dL (74-106); POTASSIUM 3.8 mmol/L (3.5-5.1); SODIUM SERUM 133 mmol/L (136-145); UREA NITROGEN, BLOOD 9 mg/dL (7-18)
--- NOTE | 2018-01-16 06:52 | NUR ---
RN CLOSING NOTES NO SIGNIFICANT CHANGE OF CONDITION. VITAL SIGNS WNL. NO DISTRESS NOTED BREATHING EVEN AND UNLABORED. WILL ENDORSE TO AM SHIFT FOR CONTINUITY OF CARE
--- NOTE | 2018-01-16 07:32 | NUR ---
MS RN OPENING NOTES RECEIVED PT FROM NIGHTSHIFT NURSE IN STABLE CONDITION. PT IS A.O X3. NO SOB NOTED. BREATHING IS EVEN AND UNLABORED. PT IS ON 2 L VIA NC AND SATING WELL. HE DOES COMPLAIN OF AN ACHING PAIN IN HIS RIGHT HIP NOTED AN 8/10. WILL ADMINISTER PRN PAIN MEDICATION. MULTIPLE IVS NOTED NOT RIGHT WRIST AND RIGHT FA. IVS NOTED TO BE PATENT AND INTACT. NO REDNESS OR SIGNS OF INFILTRATION NOTED. BED IN LOW LOCKED POSITION, SIDE RAILS UP X2, CALL LIGHT WITHIN REACH. WILL CONTINUE TO MONITOR
[2018-01-16 08:00] VITALS: BP 138/65
[2018-01-16] MEDS: CHLORDIAZEPOXIDE HCL 25 MG CAPSULE PO SCH ×2 (08:57→17:34)
[2018-01-16] MEDS: CALCIUM CARB 600MG /VIT D 1 EACH TABLET PO SCH (08:57)
[2018-01-16] MEDS: ENOXAPARIN SODIUM 40 MG/0.4 ML DISP.SYRIN SQ SCH (09:01)
--- NOTE | 2018-01-16 10:13 | NUR ---
MS RN NOTES PT UNABLE TO PROCEED WITH AM PHYSICAL THERAPY DUE TO PAIN. ULTRAM WAS ADMINISTERED 30MIN PRIOR TO PT. DR. VASQUEZ MADE AWARE AND GAVE A VERBAL ORDER FOR SCHEDULED NORCO 10-325 Q6HR.
[2018-01-16] MEDS: HYDROCODONE/APAP 10/325MG 1 EA TABLET PO SCH ×2 (12:37→17:34)
--- NOTE | 2018-01-16 13:24 | NUR ---
MS RN NOTES: PT PHYSICAL THERAPIST IN ROOM WITH PT. PT IS ABLE TO RISE FROM A SUPINE POSITION TO STANDING WITH THE USE OF A WALKER FOR STABILIZATION. HOWEVER, PER PT "PT IS UNABLE TO STAND FOR LONG DO TO WEAKNESS AND PAIN". HE WAS ALSO UNABLE TO AMBULATE DUE TO THOSE SAME REASONS
[2018-01-16 16:00] VITALS: BP 138/69
[2018-01-16] MEDS ORDERED: ENOX40DI SQ (16:26)
[2018-01-16] MEDS ORDERED: HYDR-548 PO (16:26)
[2018-01-16] MEDS ORDERED: LEVO500T2 PO (16:39)
[2018-01-16] MEDS: THIAMINE HCL 100 MG TABLET PO SCH (17:33)
--- NOTE | 2018-01-16 19:01 | NUR ---
MS RN CLOSING NOTES PT REMAINS STABLE. ALL NEEDS WERE MET DURING SHIFT AND ORDERS CARRIED OUT ACCORDINGLY. ALL DUE MEDS GIVEN. PT IS SCHEDULED TO BE D/C TO [facility]. PER LIA AGUILAR WARP COILER, PT'S INSURANCE COMPANY WILL NOTIFY NIGHTSHIFT NURSE OR HER OF AMBULANCE PICKUP TIME. EXITCARE COMPLETED. WILL ENDORSE TO NIGHTSHIFT NURSE TO GIVE REPORT, HAVE PT SIGN EXIT CARE MATERIALS, VERIFY BELONGINGS, AND COMPLETE DISCHARGE.
--- NOTE | 2018-01-16 20:00 | NUR ---
RECEIVED BEDSIDE REPORT FROM AM NURSE. PT IN STABLE CONDITION, A.O X3. NO SOB NOTED. BREATHING IS EVEN AND UNLABORED. PT IS ON 2 L VIA NC AND V/S ARE WNL.. HE DOES COMPLAIN OF ANY ACHING PAIN IN HIS RIGHT HIP. NO PRN PAIN MEDICATION WAS ADMINISTERED. IV IN LEFT AC NOTED TO BE PATENT AND INTACT. NO REDNESS OR SIGNS OF INFILTRATION NOTED. BED IN LOW LOCKED POSITION, SIDE RAILS UP X2, CALL LIGHT WITHIN REACH.PT IS READY TO BE DC TO [facility], TALKED TO THE PT DAUGHTER(NICHELLE) ABOUT TRANSFER.WAITING FOR THE AMBULANCE TO ARRIVE . ALL DC PAPERWORK IS READY AND SIGNED BY THE PT.WILL CONTINUE TO MONITOR.
--- NOTE | 2018-01-16 23:00 | NUR ---
AMBULANCE ARRIVED AT 22:15 LOLI DC AND TRANSPORT PT TO THE ASSISTED FACILITY ([facility]), PT IS STABLE, V/S ARE WNL, O2 SAT 94 WITH 2L O2 NC. ARM BANDS REMOVED AND LEFT AC IV LINE REMOVED. PT'S BELONGINGS ARE BEING TAKEN WITH HIM.REPORT IS GIVEN TO [facility] SHERWIN LOUISE AND AMBULANCE PERSONAL.
== END 2018-01-16 23:10 | DRG 481 ==
LOC: ER 12:17 → MEDSG1 13:38 → ICU 17:16 → TELE-TD 01-13 10:51 → TELE1 01-13 11:39 → MEDSG1 01-14 10:05 → TELE1 01-16 03:35 → MEDSG1 01-16 03:37
PROVIDERS: ADMIT Internal Medicine; ATTEND Internal Medicine
PROC: 0QS604Z Reposition Right Upper Femur with Internal Fixation Device, Open Approach (ICD-10-PCS; principal; 2018-01-13 12:30)
DX: M80.051A Age-related osteoporosis with current pathological fracture, right femur, initial encounter for fracture (principal); E44.0 Moderate protein-calorie malnutrition; N39.0 Urinary tract infection, site not specified; E03.9 Hypothyroidism, unspecified; W18.30XA Fall on same level, unspecified, initial encounter; M48.061 Spinal stenosis, lumbar region without neurogenic claudication; E78.5 Hyperlipidemia, unspecified; F10.20 Alcohol dependence, uncomplicated; E87.6 Hypokalemia; I10 Essential (primary) hypertension; K21.9 Gastro-esophageal reflux disease without esophagitis; Z87.891 Personal history of nicotine dependence; B96.20 Unspecified Escherichia coli [E. coli] as the cause of diseases classified elsewhere; Z68.24 Body mass index [BMI] 24.0-24.9, adult; M85.80 Other specified disorders of bone density and structure, unspecified site; Y93.9 Activity, unspecified; Y92.009 Unspecified place in unspecified non-institutional (private) residence as the place of occurrence of the external cause
CPT/HCPCS: 36415; 71045-TC; 73501; 73502; 73552; 73560-TC; 80048-TC; 80053-TC; 80076-TC; 81000-TC; 82306; 83735-TC; 84100-TC; 84439-TC; 84443-TC; 84484-TC; 85025-TC; 85610-TC; 85730-TC; 86850-TC; 87081-TC; 87086-TC; 87186-TC; 93307-TC; 97530-TC; A4216; A4606; A6209; A6402; C1713; G0480; J0360; J0690; J1100; J1650; J1940; J2060; J2270; J2370; J2405; J2704; J3010; J3411; J3475; J3490; J7030; J7060; Z7610

== ENCOUNTER 2018-01-19 19:44 | Inpatient (IN) | payer OTHER ==
[~2018-01-19] VITALS: Ht 180.3 cm; Wt 83.7 kg
[~2018-01-19 19:44] MED LIST: ENOX40DI SQ; HYDR-548 PO; LEVO500T2 PO
[2018-01-19] MEDS ORDERED: IV NS 0.9% 1,000 ML BAG IV ONE (20:00)
[2018-01-19 20:03] LABS: BASOPHILS # (AUTO) 0.1 /CMM (0.0-0.2); BASOPHILS % (AUTO) 0.6 % (0.0-2.0); EOSINOPHILS % (AUTO) 1.5 % (0.0-6.0); HEMATOCRIT 31 % (39-51); HEMOGLOBIN 10.6 g/dL (13.5-17.5); LYMPHOCYTES # (AUTO) 1.5 /CMM (0.8-4.8); LYMPHOCYTES % (AUTO) 16.4 % (20.0-44.0); MEAN CORPUSCULAR HGB CONC 34 g/dl (31.0-36.0); MEAN CORPUSCULAR VOLUME 88 fL (80-96); MONOCYTES # (AUTO) 1.1 /CMM (0.1-1.30); MONOCYTES % (AUTO) 11.8 % (2.0-12.0); NEUTROPHILS # (AUTO) 6.6 /CMM (1.8-8.9); NEUTROPHILS % (AUTO) 69.7 % (43.0-81.0); PLATELET COUNT (AUTO) 222 /CMM (150-450); RDW COEFFICIENT OF VARIATION 13.9 (11.5-15.0); RED BLOOD CELL COUNT(AUTO) 3.54 MIL/uL (4.5-6.0); WHITE BLOOD COUNT (AUTO) 9.4 K/uL (4.3-11.0)
[2018-01-19 20:15] LABS: CALCIUM, SERUM 8.7 mg/dL (8.5-10.1); CARBON DIOXIDE 30 mmol/L (21-32); CHLORIDE 99 mmol/L (98-107); GLUCOSE 140 mg/dL (74-106); POTASSIUM 4.3 mmol/L (3.5-5.1); SODIUM SERUM 133 mmol/L (136-145); UREA NITROGEN, BLOOD 16 mg/dL (7-18)
[2018-01-19 20:21] LABS: ALANINE AMINOTRANSFERASE 17 U/L (12-78); ALBUMIN 2.3 g/dL (3.4-5.0); ALKALINE PHOSPHATASE 102 U/L (46-116); ASPARTATE AMINOTRANSFERASE 25 U/L (15-37); BILIRUBIN,DIRECT 0.3 mg/dL (0.0-0.2); BILIRUBIN,TOTAL 1.1 mg/dL (0.2-1.0); TOTAL PROTEIN, SERUM 7.2 g/dL (6.4-8.2)
[2018-01-19 20:23] LABS: TROPONIN I 0.037 ng/mL (0.00-0.056)
[2018-01-19] MEDS ORDERED: LIDOCAINE 2% JEL UROJET 10 ML MM ONE (20:27)
[2018-01-19 20:53] LABS: INR 0.91 (0.85-1.15)
[2018-01-19 20:59] LABS: APPEARANCE,URINE Clear (CLEAR); BILIRUBIN,URINE SMALL (NEGATIVE); BLOOD, URINE Negative Ery/uL (NEGATIVE); COLOR,URINE Yellow (YELLOW); KETONES,URINE Negative (NEGATIVE); LEUKOCYTE ESTERASE ,URINE Negative (NEGATIVE); NITRITE, URINE Negative (NEGATIVE); PROTEIN,URINE Trace mg/dl (NEGATIVE); UGLUCOSE Negative (NEGATIVE)
[2018-01-19] MEDS ORDERED: PIPERACILLIN /TAZOBACTAM 3.375 G in IV D5W 50 ML IV ONE (21:30)
[2018-01-19] MEDS ORDERED: VANCOMYCIN 1 GM in IV D5W 250 ML IV ONE (21:30)
[2018-01-19 21:39] LABS: BACTERIA,URINE Rare /HPF (None Seen); RBC,URINE 0-2 /HPF (0-2); SQUAMOUS EPITHELIAL CELL,UR Few /HPF (None Seen); WBC,URINE 0-2 /HPF (0-3)
[2018-01-19] MEDS ORDERED: PIPERACILLIN /TAZOBACTAM 3.375 G VIAL IV ONE ×2 (21:57→23:25)
[2018-01-19] MEDS ORDERED: VANCOMYCIN 1 GM VIAL ONE (21:57)
[2018-01-19] MEDS ORDERED: ACETAMINOPHEN 325 MG TABLET PO PRN (22:30)
[2018-01-19] MEDS ORDERED: ONDANSETRON HCL/PF 4 MG/2 ML VIAL IVP PRN (22:30)
[2018-01-19] MEDS ORDERED: MAGNESIUM HYDROXIDE 30 ML UDC PO PRN (22:30)
[2018-01-19] MEDS ORDERED: MAG HYDROX/AL HYDROX/SIMETH 30 ML UDC PO PRN (22:30)
[2018-01-19] MEDS ORDERED: Z GUARD REMEDY 2 OZ OINT TP PRN (22:30)
[2018-01-19] MEDS: IV NS 0.9% 1,000 ML IV PRN (23:22)
[2018-01-19] MEDS: PIPERACILLIN /TAZOBACTAM 3.375 G in IV D5W 50 ML IV SCH (23:33)
[2018-01-19] MEDS: HYDROCODONE/APAP 5/325MG 1 EACH TABLET PO PRN (23:37)
[2018-01-20] VITALS: BP 131/72
[2018-01-20 04:00] VITALS: BP 102/52
[2018-01-20] MEDS ORDERED: PIPERACILLIN /TAZOBACTAM 3.375 G VIAL IV ONE (05:13)
[2018-01-20] MEDS: HYDROCODONE/APAP 5/325MG 1 EACH TABLET PO PRN ×4 (05:14→20:16)
[2018-01-20] MEDS: PIPERACILLIN /TAZOBACTAM 3.375 G in IV D5W 50 ML IV SCH ×4 (05:15→23:03)
[2018-01-20 06:32] LABS: BASOPHILS % (AUTO) 0.3 % (0.0-2.0); EOSINOPHILS % (AUTO) 1.8 % (0.0-6.0); HEMATOCRIT 28 % (39-51); HEMOGLOBIN 9.4 g/dL (13.5-17.5); LYMPHOCYTES # (AUTO) 1.5 /CMM (0.8-4.8); MEAN CORPUSCULAR HGB CONC 34 g/dl (31.0-36.0); MEAN CORPUSCULAR VOLUME 89 fL (80-96); MONOCYTES % (AUTO) 14.6 % (2.0-12.0); NEUTROPHILS # (AUTO) 4.5 /CMM (1.8-8.9); NEUTROPHILS % (AUTO) 62.3 % (43.0-81.0); PLATELET COUNT (AUTO) 178 /CMM (150-450); RDW COEFFICIENT OF VARIATION 14.8 (11.5-15.0); RED BLOOD CELL COUNT(AUTO) 3.14 MIL/uL (4.5-6.0); WHITE BLOOD COUNT (AUTO) 7.2 K/uL (4.3-11.0)
[2018-01-20 06:43] LABS: ALANINE AMINOTRANSFERASE 17 U/L (12-78); ALKALINE PHOSPHATASE 94 U/L (46-116); ASPARTATE AMINOTRANSFERASE 24 U/L (15-37); BILIRUBIN,DIRECT 0.4 mg/dL (0.0-0.2); BILIRUBIN,TOTAL 1.2 mg/dL (0.2-1.0); CALCIUM, SERUM 8.4 mg/dL (8.5-10.1); CARBON DIOXIDE 30 mmol/L (21-32); CHLORIDE 102 mmol/L (98-107); CREATININE 0.7 mg/dL (0.6-1.3); GLUCOSE 106 mg/dL (74-106); MAGNESIUM 2.2 mg/dL (1.8-2.4); PHOSPHORUS 3.7 mg/dL (2.5-4.9); SODIUM SERUM 136 mmol/L (136-145); TOTAL PROTEIN, SERUM 6.2 g/dL (6.4-8.2); UREA NITROGEN, BLOOD 12 mg/dL (7-18)
[2018-01-20 06:48] LABS: TROPONIN I 0.026 ng/mL (0.00-0.056)
[2018-01-20 06:55] LABS: CHOLESTEROL 119 mg/dL (<200); HDL CHOLESTEROL 38 mg/dL (40-60); LDL 78 mg/dL (0-99); TRIGLYCERIDES 61 mg/dL (30-150)
[2018-01-20] MEDS ORDERED: FEE PK DOSING 1 MIN EA MC ONE (07:07)
[2018-01-20 08:00] VITALS: BP 116/59
[2018-01-20] MEDS: ENOXAPARIN SODIUM 40 MG/0.4 ML DISP.SYRIN SQ SCH (08:39)
[2018-01-20] MEDS: VANCOMYCIN 1 GM in IV D5W 250 ML IV SCH ×2 (09:55→21:29)
[2018-01-20] MEDS ORDERED: HYDROGEL DRESSING 90 GM TUBE TP PRN (11:30)
[2018-01-20] MEDS: HYDROGEL DRESSING 90 GM TUBE TP SCH (14:12)
[2018-01-20 16:00] VITALS: BP 125/72
[2018-01-20 20:00] VITALS: BP 138/63
[2018-01-20] MEDS: IV NS 0.9% 1,000 ML IV PRN (23:57)
[2018-01-21] MEDS ORDERED: POTASSIUM CHLORIDE 20 MEQ TAB.PRT.SR PO ONE (05:00)
[2018-01-21] MEDS ORDERED: FUROSEMIDE 20 MG/2 ML VIAL IV ONE (05:00)
[2018-01-21] MEDS: PIPERACILLIN /TAZOBACTAM 3.375 G in IV D5W 50 ML IV SCH ×2 (05:30→12:59)
[2018-01-21 06:48] LABS: CALCIUM, SERUM 8.1 mg/dL (8.5-10.1); CARBON DIOXIDE 29 mmol/L (21-32); CHLORIDE 101 mmol/L (98-107); CREATININE 0.7 mg/dL (0.6-1.3); GLUCOSE 101 mg/dL (74-106); POTASSIUM 3.9 mmol/L (3.5-5.1); SODIUM SERUM 135 mmol/L (136-145); UREA NITROGEN, BLOOD 9 mg/dL (7-18)
[2018-01-21 06:53] LABS: BASOPHILS % (AUTO) 0.6 % (0.0-2.0); EOSINOPHILS % (AUTO) 2.4 % (0.0-6.0); HEMATOCRIT 28 % (39-51); HEMOGLOBIN 9.7 g/dL (13.5-17.5); LYMPHOCYTES # (AUTO) 1.2 /CMM (0.8-4.8); LYMPHOCYTES % (AUTO) 18.8 % (20.0-44.0); MEAN CORPUSCULAR HGB CONC 34 g/dl (31.0-36.0); MEAN CORPUSCULAR VOLUME 89 fL (80-96); MONOCYTES # (AUTO) 0.7 /CMM (0.1-1.30); MONOCYTES % (AUTO) 11.1 % (2.0-12.0); NEUTROPHILS # (AUTO) 4.2 /CMM (1.8-8.9); NEUTROPHILS % (AUTO) 67.1 % (43.0-81.0); PLATELET COUNT (AUTO) 173 /CMM (150-450); RDW COEFFICIENT OF VARIATION 14.2 (11.5-15.0); WHITE BLOOD COUNT (AUTO) 6.3 K/uL (4.3-11.0)
[2018-01-21 08:00] VITALS: BP_SYST 128; BP_DIAS 52; BP_DIAS 85
[2018-01-21] MEDS: HYDROGEL DRESSING 90 GM TUBE TP SCH (08:30)
[2018-01-21] MEDS: ENOXAPARIN SODIUM 40 MG/0.4 ML DISP.SYRIN SQ SCH (08:31)
[2018-01-21] MEDS: VANCOMYCIN 1 GM in IV D5W 250 ML IV SCH (10:24)
[2018-01-21] MEDS: HYDROCODONE/APAP 10/325MG 1 EA TABLET PO PRN (10:39)
[2018-01-21] MEDS ORDERED: chlorproMAZINE HCL 25 MG TABLET PO PRN (14:30)
[2018-01-21 16:00] VITALS: BP 120/63
[2018-01-21] MEDS: PIPERACILLIN /TAZOBACTAM 3.375 G in IV NS 0.9% 50 ML IV SCH (17:27)
[2018-01-21] MEDS: LACTOBACILLUS RHAMNOSUS GG 1 EACH CAP.SPRINK PO SCH (17:27)
[2018-01-21 20:00] VITALS: BP 110/64
[2018-01-21] MEDS: HYDROCODONE/APAP 5/325MG 1 EACH TABLET PO PRN (21:06)
[2018-01-21] MEDS: VANCOMYCIN 1.25 GM in IV D5W 500 ML IV SCH (21:07)
[2018-01-22] MEDS: PIPERACILLIN /TAZOBACTAM 3.375 G in IV NS 0.9% 50 ML IV SCH ×3 (00:19→13:17)
[2018-01-22 06:24] LABS: CALCIUM, SERUM 8.5 mg/dL (8.5-10.1); CARBON DIOXIDE 31 mmol/L (21-32); CHLORIDE 103 mmol/L (98-107); CREATININE 0.7 mg/dL (0.6-1.3); GLUCOSE 98 mg/dL (74-106); POTASSIUM 3.8 mmol/L (3.5-5.1); SODIUM SERUM 138 mmol/L (136-145); UREA NITROGEN, BLOOD 10 mg/dL (7-18)
[2018-01-22 08:00] VITALS: BP 121/59
[2018-01-22] MEDS: LACTOBACILLUS RHAMNOSUS GG 1 EACH CAP.SPRINK PO SCH (08:20)
[2018-01-22] MEDS: HYDROGEL DRESSING 90 GM TUBE TP SCH (08:21)
[2018-01-22] MEDS: HYDROCODONE/APAP 10/325MG 1 EA TABLET PO PRN (08:24)
[2018-01-22] MEDS: ENOXAPARIN SODIUM 40 MG/0.4 ML DISP.SYRIN SQ SCH (08:26)
[2018-01-22] MEDS ORDERED: MAGNESIUM HYDROXIDE 30 ML UDC PO ONE (09:00)
[2018-01-22] MEDS: VANCOMYCIN 1.25 GM in IV D5W 500 ML IV SCH (10:24)
[2018-01-22] MEDS ORDERED: HYDR-3972 PO (12:25)
== END 2018-01-22 17:00 | disposition home health service (06) | DRG 871 ==
LOC: ER 19:45 → TELE 22:15 → MED 01-20 09:27
PROVIDERS: ADMIT Nurse Practitioner Acute Care; ATTEND Nurse Practitioner Acute Care
DX: A41.9 Sepsis, unspecified organism (principal); J69.0 Pneumonitis due to inhalation of food and vomit; E44.0 Moderate protein-calorie malnutrition; G93.41 Metabolic encephalopathy; E87.1 Hypo-osmolality and hyponatremia; E03.9 Hypothyroidism, unspecified; E78.5 Hyperlipidemia, unspecified; K21.9 Gastro-esophageal reflux disease without esophagitis; D63.8 Anemia in other chronic diseases classified elsewhere; I10 Essential (primary) hypertension; K70.9 Alcoholic liver disease, unspecified; M81.0 Age-related osteoporosis without current pathological fracture; Z82.49 Family history of ischemic heart disease and other diseases of the circulatory system; E88.09 Other disorders of plasma-protein metabolism, not elsewhere classified; Z68.25 Body mass index [BMI] 25.0-25.9, adult; E80.6 Other disorders of bilirubin metabolism; F10.21 Alcohol dependence, in remission
CPT/HCPCS: 36415; 71045-TC; 80048-TC; 80061-TC; 80076-TC; 80202-TC; 81000-TC; 83605-TC; 83735-TC; 83880; 84100-TC; 84443-TC; 84484-TC; 85025-TC; 85730-TC; 87040-TC; 87081-TC; 87086-TC; 92526; 92611-TC; 97116-TC; 97530-TC; A4216; A4217; A4606; A6248; A6253; A6402; J1650; J1940; J2405; J2543; J3370; J3490; J7030; J7060; Q0161; Z7610

== ENCOUNTER 2019-12-13 12:21 | Emergency (ER) | payer BC, OTHER ==
[~2019-12-13] VITALS: Ht 170.2 cm; Wt 72.6 kg
[~2019-12-13 12:21] MED LIST changes: +HYDR-3972 PO; -HYDR-548 PO
[2019-12-13 12:32] VITALS: BP 152/72
== END 2019-12-13 12:51 | disposition home or self-care (01) ==
LOC: ER 12:23
DX: J02.9 Acute pharyngitis, unspecified (principal); Z79.899 Other long term (current) drug therapy

== ENCOUNTER 2020-03-11 11:34 | Emergency (ER) | payer BC, OTHER ==
[~2020-03-11] VITALS: Ht 170.2 cm; Wt 83.9 kg
--- NOTE | 2020-03-11 11:40 | NUR ---
pt bib self c/o rectal bleed for 3 days, pt is aaox3, not in respiratory distress, hooked to alarm security or surveillance monitor, kept rested and comfortable, will continue to monitor.
[2020-03-11] MEDS ORDERED: IV NS 0.9% 1,000 ML BAG IV ONE (12:00)
--- NOTE | 2020-03-11 12:00 | NUR ---
Pt seen and examined by .
--- NOTE | 2020-03-11 12:05 | NUR ---
iv line established blood drawn and sent to lab.
[2020-03-11 12:11] LABS: WHITE BLOOD COUNT (AUTO) 6.9 K/uL (4.3-11.0)
[2020-03-11 12:14] LABS: BASOPHILS % (AUTO) 0.6 % (0.0-2.0); EOSINOPHILS % (AUTO) 0.9 % (0.0-6.0); HEMATOCRIT 47 % (39-51); HEMOGLOBIN 15.7 g/dL (13.5-17.5); LYMPHOCYTES # (AUTO) 1.7 /CMM (0.8-4.8); LYMPHOCYTES % (AUTO) 24.3 % (20.0-44.0); MEAN CORPUSCULAR HGB CONC 34 g/dl (31.0-36.0); MEAN CORPUSCULAR VOLUME 91 fL (80-96); MONOCYTES # (AUTO) 0.5 /CMM (0.1-1.30); MONOCYTES % (AUTO) 7.1 % (2.0-12.0); NEUTROPHILS # (AUTO) 4.7 /CMM (1.8-8.9); NEUTROPHILS % (AUTO) 67.1 % (43.0-81.0); PLATELET COUNT (AUTO) 147 /CMM (150-450); RED BLOOD CELL COUNT(AUTO) 5.15 MIL/uL (4.5-6.0)
[2020-03-11 12:34] LABS: CARBON DIOXIDE 25 mmol/L (21-32); CHLORIDE 103 mmol/L (98-107); CREATININE 0.9 mg/dL (0.6-1.3); GLUCOSE 104 mg/dL (74-106); POTASSIUM 4.1 mmol/L (3.5-5.1); SODIUM SERUM 137 mmol/L (136-145); UREA NITROGEN, BLOOD 11 mg/dL (7-18)
[2020-03-11 12:40] LABS: ALANINE AMINOTRANSFERASE 23 U/L (12-78); ALBUMIN 3.5 g/dL (3.4-5.0); ALKALINE PHOSPHATASE 95 U/L (46-116); ASPARTATE AMINOTRANSFERASE 23 U/L (15-37); BILIRUBIN,DIRECT 0.2 mg/dL (0.0-0.2); BILIRUBIN,TOTAL 0.7 mg/dL (0.2-1.0); LIPASE 93 U/L (73-393); TOTAL PROTEIN, SERUM 7.4 g/dL (6.4-8.2)
--- NOTE | 2020-03-11 12:48 | NUR ---
Tran henry in [facility] - 03/11/20 at 1317 by MALORIE R anal fissure noted upon assessment with .
--- NOTE | 2020-03-11 12:48 | NUR ---
perianal fissure noted upon assessment with .
[2020-03-11] MEDS ORDERED: Z GUARD REMEDY 2 OZ OINT TP ONE (13:00)
--- NOTE | 2020-03-11 13:16 | NUR ---
IV removed. Catheter intact and site benign. Pressure and 4x4 applied to site. No bleeding noted. Patient discharged to home in stable condition. Written and verbal after care instructions given. Patient verbalizes understanding of instruction.
[2020-03-11 13:17] VITALS: BP 137/77
== END 2020-03-11 13:20 | disposition home or self-care (01) ==
LOC: ER 11:34
DX: K60.2 Anal fissure, unspecified (principal); Z79.899 Other long term (current) drug therapy
CPT/HCPCS: 36415; 80048-TC; 80076-TC; 83690-TC; 84484-TC; 85025-TC; 85730-TC

== ENCOUNTER 2020-12-28 15:30 | Emergency (ER) | payer OTHER ==
[~2020-12-28] VITALS: Ht 172.7 cm; Wt 78.0 kg
--- NOTE | 2020-12-28 15:40 | NUR ---
PATIENT BIB HIS DAUGHTER WITH C/O ABDOMINAL PAIN X 5 DAYS AND ON & OFF SOB. THE PATIENT RATES ABDOMINAL PAIN 5/10. OXYGEN SATURATION LEVEL IN ROOM AIR AT 93%. THE PATIENT IS ALERT AND ORIENTED X3. PATIENT IS ATTACHED ON A MONITOR. WARM BLANKET PROVIDED FOR COMFORT. WILL CONTINUE TO MONITOR.
[2020-12-28 16:08] LABS: BASOPHILS # (AUTO) 0.1 /CMM (0.0-0.2); BASOPHILS % (AUTO) 1.1 % (0.0-2.0); EOSINOPHILS % (AUTO) 0.2 % (0.0-6.0); HEMATOCRIT 47 % (39-51); HEMOGLOBIN 15.8 g/dL (13.5-17.5); LYMPHOCYTES # (AUTO) 1.1 /CMM (0.8-4.8); MEAN CORPUSCULAR HGB CONC 34 g/dl (31.0-36.0); MEAN CORPUSCULAR VOLUME 91 fL (80-96); MONOCYTES # (AUTO) 0.6 /CMM (0.1-1.30); MONOCYTES % (AUTO) 5.5 % (2.0-12.0); NEUTROPHILS # (AUTO) 9.3 /CMM (1.8-8.9); NEUTROPHILS % (AUTO) 83.2 % (43.0-81.0); PLATELET COUNT (AUTO) 140 /CMM (150-450); WHITE BLOOD COUNT (AUTO) 11.2 K/uL (4.3-11.0)
[2020-12-28] MEDS: IV NS 0.9% 1,000 ML BAG IV ONE (16:20)
[2020-12-28 16:21] LABS: CALCIUM, SERUM 9.4 mg/dL (8.5-10.1); CREATININE 0.9 mg/dL (0.6-1.3); POTASSIUM 3.8 mmol/L (3.5-5.1)
[2020-12-28 16:24] LABS: ALBUMIN 3.7 g/dL (3.4-5.0); BILIRUBIN,DIRECT 0.2 mg/dL (0.0-0.2); BILIRUBIN,TOTAL 0.8 mg/dL (0.2-1.0); TOTAL PROTEIN, SERUM 7.9 g/dL (6.4-8.2)
[2020-12-28] MEDS ORDERED: LEVO25TA9 PO (16:54)
[2020-12-28] MEDS ORDERED: DONE10TA44 PO (16:54)
[2020-12-28] MEDS ORDERED: FOLI0.8T3 PO (16:54)
[2020-12-28] MEDS ORDERED: CHOL200059 PO (16:54)
[2020-12-28] MEDS ORDERED: LOSA25TA27 PO (16:54)
[2020-12-28] MEDS ORDERED: ALEN70TA80 PO (16:54)
[2020-12-28] MEDS ORDERED: CALC1TAB91 PO (16:54)
[2020-12-28 17:10] VITALS: BP 135/80
--- NOTE | 2020-12-28 17:10 | NUR ---
Patient discharged to home in stable condition. Written and verbal after care instructions given. Patient verbalizes understanding of instruction. The patient left ER in stable condition.
== END 2020-12-28 17:12 | disposition home or self-care (01) ==
LOC: ER 15:38
DX: R10.84 Generalized abdominal pain (principal); F10.10 Alcohol abuse, uncomplicated; Y90.9 Presence of alcohol in blood, level not specified; Z79.899 Other long term (current) drug therapy
CPT/HCPCS: 36415; 74176; 80048; 80076; 83690; 85025; 96360; 99284; J7030

== ENCOUNTER 2021-03-26 11:11 | Emergency (ER) | payer OTHER ==
[~2021-03-26] VITALS: Ht 170.2 cm; Wt 83.9 kg
[~2021-03-26 11:11] MED LIST changes: +ALEN70TA80 PO; +CALC1TAB91 PO; +CHOL200059 PO; +DONE10TA44 PO; +FOLI0.8T3 PO; +LEVO25TA9 PO; +LOSA25TA27 PO
[2021-03-26 11:20] VITALS: BP 157/89
[2021-03-26] MEDS ORDERED: CEPH500C2 PO (11:28)
[2021-03-26] MEDS ORDERED: PRED50TA PO (11:28)
--- NOTE | 2021-03-26 11:37 | NUR ---
Patient discharged to home in stable condition. Written and verbal after care instructions given. Patient verbalizes understanding of instruction.
== END 2021-03-26 11:38 | disposition home or self-care (01) ==
LOC: ER 11:14
DX: L30.9 Dermatitis, unspecified (principal); Z79.899 Other long term (current) drug therapy

== ENCOUNTER 2021-04-28 20:19 | Emergency (ER) | payer OTHER ==
[~2021-04-28] VITALS: Ht 170.2 cm; Wt 79.4 kg
[~2021-04-28 20:19] MED LIST changes: +CEPH500C2 PO; +PRED50TA PO
--- NOTE | 2021-04-28 20:50 | NUR ---
PATIENT BIB DAUGHTER FROM HOME C/O RIGHT UPPER QUAD PAIN DULL FOR THE PAST MONTH. PATIENT STATED IT GOT WORSE TODAY. PATIENT IS A/O X 4, RR EVEN AND UNLABORED, NO SIGNS OF SOB NOTED. PATIENT CONNECTED TO SUPERVISOR LANDSCAPE.
[2021-04-28 20:54] LABS: BASOPHILS # (AUTO) 0.1 K/uL (0.0-0.2); EOSINOPHILS % (AUTO) 1.3 % (0.0-6.0); HEMATOCRIT 45 % (39-51); HEMOGLOBIN 15.1 g/dL (13.5-17.5); LYMPHOCYTES # (AUTO) 2.5 K/uL (0.8-4.8); LYMPHOCYTES % (AUTO) 33.8 % (20.0-44.0); MEAN CORPUSCULAR HGB CONC 34 g/dl (31.0-36.0); MEAN CORPUSCULAR VOLUME 93 fL (80-96); MONOCYTES # (AUTO) 0.7 K/uL (0.1-1.30); NEUTROPHILS % (AUTO) 54.9 % (43.0-81.0); PLATELET COUNT (AUTO) 153 K/uL (150-450); RED BLOOD CELL COUNT(AUTO) 4.82 MIL/uL (4.5-6.0); WHITE BLOOD COUNT (AUTO) 7.3 K/uL (4.3-11.0)
[2021-04-28] MEDS ORDERED: IV NS 0.9% 1,000 ML BAG IV ONE (21:00)
--- NOTE | 2021-04-28 21:05 | NUR ---
URINE COLLECTED AND SENT TO LAB
[2021-04-28 21:08] LABS: ALANINE AMINOTRANSFERASE 19 U/L (12-78); ALBUMIN 3.4 g/dL (3.4-5.0); ALKALINE PHOSPHATASE 111 U/L (46-116); ASPARTATE AMINOTRANSFERASE 24 U/L (15-37); BILIRUBIN,DIRECT 0.1 mg/dL (0.0-0.2); BILIRUBIN,TOTAL 0.4 mg/dL (0.2-1.0); CALCIUM, SERUM 8.7 mg/dL (8.5-10.1); CARBON DIOXIDE 24 mmol/L (21-32); CHLORIDE 103 mmol/L (98-107); CREATININE 0.9 mg/dL (0.6-1.3); GLUCOSE 101 mg/dL (74-106); LIPASE 137 U/L (73-393); POTASSIUM 3.3 mmol/L (3.5-5.1); SODIUM SERUM 136 mmol/L (136-145); TOTAL PROTEIN, SERUM 7.2 g/dL (6.4-8.2); UREA NITROGEN, BLOOD 11 mg/dL (7-18)
--- NOTE | 2021-04-28 21:08 | NUR ---
PATIENT TAKEN TO CT
[2021-04-28 21:17] LABS: BILIRUBIN,URINE Negative (NEGATIVE); COLOR,URINE YELLOW (YELLOW); LEUKOCYTE ESTERASE ,URINE Trace (NEGATIVE); NITRITE, URINE Negative (NEGATIVE); PH,URINE 5.5 (5.0-8.0); PROTEIN,URINE Negative (NEGATIVE); UGLUCOSE Negative (NEGATIVE); UROBILINOGEN,URINE 0.2 EU/dL (0.2)
--- NOTE | 2021-04-28 21:30 | NUR ---
US AT BEDSIDE
[2021-04-28 21:39] LABS: RBC,URINE 0-2 /HPF (0-2)
[2021-04-28 21:41] LABS: BACTERIA,URINE Rare /HPF (None Seen); SQUAMOUS EPITHELIAL CELL,UR 0-2 /HPF (None Seen)
[2021-04-28] MEDS ORDERED: CIPR500T5 PO (22:07)
--- NOTE | 2021-04-28 22:38 | NUR ---
Patient discharged to home in stable condition. Rx and Written and verbal after care instructions given. Patient verbalizes understanding of instruction.
[2021-04-28 23:15] VITALS: BP 152/81
== END 2021-04-28 22:35 | disposition home or self-care (01) ==
LOC: ER 20:19
DX: N39.0 Urinary tract infection, site not specified (principal); K80.50 Calculus of bile duct without cholangitis or cholecystitis without obstruction; G30.9 Alzheimer's disease, unspecified; Z98.890 Other specified postprocedural states; Z79.899 Other long term (current) drug therapy
CPT/HCPCS: 36415; 74176; 76705; 80048; 80076; 81001; 83690; 84484; 85025; 87086; 96360; 99291; J7030

== ENCOUNTER 2021-06-11 09:20 | Emergency (ER) | payer OTHER ==
[~2021-06-11] VITALS: Ht 170.2 cm; Wt 81.6 kg
[~2021-06-11 09:20] MED LIST changes: +CIPR500T5 PO
--- NOTE | 2021-06-11 09:30 | NUR ---
TO ER BED 4 FOR EVAL AND TREATMENT OF DYSURIA AND FREQUENCY
--- NOTE | 2021-06-11 09:35 | NUR ---
DR MATHEWS AT BEDSIDE
--- NOTE | 2021-06-11 09:36 | NUR ---
URINE SPECIMEN COLLECTED AND SENT TO LAB.
--- NOTE | 2021-06-11 09:52 | NUR ---
ER PHLEB AT BEDSIDE FOR BLOOD DRAW.
[2021-06-11 10:03] LABS: BILIRUBIN,URINE SMALL (NEGATIVE); COLOR,URINE YELLOW (YELLOW); LEUKOCYTE ESTERASE ,URINE SMALL (NEGATIVE); NITRITE, URINE POSITIVE (NEGATIVE); PROTEIN,URINE >=300 mg/dl (NEGATIVE); UGLUCOSE NEGATIVE (NEGATIVE)
[2021-06-11 10:10] LABS: BASOPHILS # (AUTO) 0.1 K/uL (0.0-0.2); BASOPHILS % (AUTO) 0.9 % (0.0-2.0); EOSINOPHILS % (AUTO) 0.2 % (0.0-6.0); HEMATOCRIT 47 % (39-51); HEMOGLOBIN 15.7 g/dL (13.5-17.5); LYMPHOCYTES # (AUTO) 1.1 K/uL (0.8-4.8); LYMPHOCYTES % (AUTO) 12.9 % (20.0-44.0); MEAN CORPUSCULAR HGB CONC 33 g/dl (31.0-36.0); MEAN CORPUSCULAR VOLUME 93 fL (80-96); MONOCYTES # (AUTO) 0.5 K/uL (0.1-1.30); MONOCYTES % (AUTO) 6.3 % (2.0-12.0); NEUTROPHILS # (AUTO) 6.8 K/uL (1.8-8.9); NEUTROPHILS % (AUTO) 79.7 % (43.0-81.0); PLATELET COUNT (AUTO) 136 K/uL (150-450); RED BLOOD CELL COUNT(AUTO) 5.05 MIL/uL (4.5-6.0); WHITE BLOOD COUNT (AUTO) 8.5 K/uL (4.3-11.0)
[2021-06-11 10:16] LABS: BACTERIA,URINE Few /HPF (None Seen); RBC,URINE 51-80 /HPF (0-2); SQUAMOUS EPITHELIAL CELL,UR Rare /HPF (None Seen)
[2021-06-11 10:43] LABS: CALCIUM, SERUM 8.5 mg/dL (8.5-10.1); CREATININE 0.8 mg/dL (0.6-1.3); POTASSIUM 3.7 mmol/L (3.5-5.1)
[2021-06-11] MEDS ORDERED: TAMS-12 PO (11:06)
[2021-06-11] MEDS ORDERED: CIPR-262 PO (11:06)
[2021-06-11 11:18] VITALS: BP 141/74
--- NOTE | 2021-06-11 11:18 | NUR ---
Patient discharged to home in stable condition. Written and verbal after care instructions given. Patient verbalizes understanding of instruction.
[2021-06-11] MEDS ORDERED: CEFTRIAXONE 1 G VIAL IM ONE (11:30)
== END 2021-06-11 11:19 | disposition home or self-care (01) ==
LOC: ER 09:30
DX: N39.0 Urinary tract infection, site not specified (principal); G30.9 Alzheimer's disease, unspecified; Z98.890 Other specified postprocedural states; Z79.899 Other long term (current) drug therapy
CPT/HCPCS: 36415; 80048-TC; 81001; 85025-TC; 87086-TC; 87186-TC

== ENCOUNTER 2022-07-30 15:12 | Inpatient (IN) | payer OTHER ==
[~2022-07-30] VITALS: Ht 170.2 cm; Wt 84.4 kg
[~2022-07-30 15:12] MED LIST changes: +CIPR-262 PO; +TAMS-12 PO
--- NOTE | 2022-07-30 15:15 | NUR ---
Tran henry in [facility] - 07/30/22 at 1735 by CRISTY ABG DONE BY RT
--- NOTE | 2022-07-30 15:24 | NUR ---
c/o SOB x 2 days with wheezing; started as cough and congestion 6 days ago
--- NOTE | 2022-07-30 15:26 | NUR ---
COVID TEST COLLECTED AND SENT
--- NOTE | 2022-07-30 15:27 | NUR ---
established iv line left ac 18g
--- NOTE | 2022-07-30 15:27 | NUR ---
blood sample obtained sent to lab
--- NOTE | 2022-07-30 15:28 | NUR ---
tech at bed side for ekg
[2022-07-30] MEDS ORDERED: CEFTRIAXONE 1GM BAG (ER ONLY) 50 ML IV ONE ×2 (15:30→15:38)
[2022-07-30] MEDS ORDERED: ALBUTEROL FS 2.5 MG/3 ML VIAL.NEB NEB ONE (15:30)
[2022-07-30] MEDS ORDERED: AZITHROMYCIN 500 MG in IV D5W 250 ML IV ONE (15:30)
[2022-07-30] MEDS ORDERED: IV NS 0.9% 1,000 ML BAG IV ONE ×2 (15:30→18:00)
--- NOTE | 2022-07-30 15:30 | NUR ---
ABG TAKEN BY RT
[2022-07-30] MEDS ORDERED: ALBUTEROL FS 2.5 MG/3 ML VIAL.NEB ONE (15:48)
--- NOTE | 2022-07-30 15:53 | NUR ---
tech at bedside for xray
[2022-07-30 16:30] LABS: BASOPHILS % (AUTO) 0.3 % (0.0-2.0); EOSINOPHILS % (AUTO) 1.8 % (0.0-6.0); HEMATOCRIT 49 % (39-51); HEMOGLOBIN 16.4 g/dL (13.5-17.5); LYMPHOCYTES # (AUTO) 1.7 K/uL (0.8-4.8); LYMPHOCYTES % (AUTO) 27.7 % (20.0-44.0); MEAN CORPUSCULAR HGB CONC 33 g/dl (31.0-36.0); MEAN CORPUSCULAR VOLUME 90 fL (80-96); MONOCYTES # (AUTO) 0.5 K/uL (0.1-1.30); NEUTROPHILS # (AUTO) 3.9 K/uL (1.8-8.9); NEUTROPHILS % (AUTO) 62.2 % (43.0-81.0); PLATELET COUNT (AUTO) 139 K/uL (150-450); RED BLOOD CELL COUNT(AUTO) 5.45 MIL/uL (4.5-6.0); WHITE BLOOD COUNT (AUTO) 6.2 K/uL (4.3-11.0)
[2022-07-30 16:41] LABS: ALANINE AMINOTRANSFERASE 18 U/L (12-78); ALBUMIN 3.1 g/dL (3.4-5.0); ALKALINE PHOSPHATASE 100 U/L (46-116); ASPARTATE AMINOTRANSFERASE 24 U/L (15-37); BILIRUBIN,DIRECT 0.1 mg/dL (0.0-0.2); BILIRUBIN,TOTAL 0.4 mg/dL (0.2-1.0); CALCIUM, SERUM 8.9 mg/dL (8.5-10.1); CARBON DIOXIDE 29 mmol/L (21-32); CHLORIDE 101 mmol/L (98-107); CREATININE 0.8 mg/dL (0.6-1.3); GLUCOSE 112 mg/dL (74-106); POTASSIUM 3.8 mmol/L (3.5-5.1); SODIUM SERUM 136 mmol/L (136-145); TOTAL PROTEIN, SERUM 7.2 g/dL (6.4-8.2); UREA NITROGEN, BLOOD 12 mg/dL (7-18)
[2022-07-30 17:14] LABS: ABG BASE EXCESS -1.8 mmol/L; ABG PCO2 35.4 mmHg (35.0-45.0); ABG PH 7.413 (7.350-7.450); ABG PO2 91.3 mmHg (75.0-100.0); COHb 0.2 % (0.5-1.5); MetHb 0.4 % (0.0-1.5); O2Hb 96.6 % (94.0-97.0); SITE, ABG Right Brachial; VENT MODE, BG NASAL CANNULA
--- NOTE | 2022-07-30 18:34 | NUR ---
RAPID INFLUENZA SWAB , SENT TO LAB
[2022-07-30 18:39] LABS: BILIRUBIN,URINE NEGATIVE (NEGATIVE); COLOR,URINE YELLOW (YELLOW); LEUKOCYTE ESTERASE ,URINE NEGATIVE (NEGATIVE); NITRITE, URINE POSITIVE (NEGATIVE); PROTEIN,URINE NEGATIVE (NEGATIVE); UGLUCOSE NEGATIVE (NEGATIVE)
--- NOTE | 2022-07-30 18:41 | NUR ---
CONTACT NUMBER [phone] SUM[place]
[2022-07-30 18:52] LABS: BACTERIA,URINE Rare /HPF (None Seen); COARSE GRANULAR CASTS,URINE Few /LPF (None Seen); RBC,URINE 0-2 /HPF (0-2); SQUAMOUS EPITHELIAL CELL,UR Few /HPF (None Seen)
[2022-07-30] MEDS ORDERED: IPRATROPIUM NEB FS 0.5 MG/2.5 ML AMPUL.NEB NEB PRN (19:00)
[2022-07-30] MEDS ORDERED: ALBUTEROL FS 2.5 MG/3 ML VIAL.NEB NEB PRN (19:00)
--- NOTE | 2022-07-30 19:20 | NUR ---
RECEIVED REPORT FROM SHERWIN SWARTZ. PATIENT CAME EARLIER WITH CC OF SOB. PATIENT IS AAOX4. ABLE TO MAKE NEEDS KNOWN. -CP, ON OXYGEN INH AT 4LPM SATURATING AT 100%. PATIENT HAS IV CANNULA G18 ON LEFT AC WITH IVF RUNNING. ATTACHED TO MONITOR. VITALS CHECKED.
--- NOTE | 2022-07-30 20:23 | NUR ---
ROOM 320-1
--- NOTE | 2022-07-30 20:30 | NUR ---
CALLED 3W, RN FEBRUARY WILL CALL BACK FOR REPORT.
--- NOTE | 2022-07-30 20:54 | NUR ---
REPORT GIVEN TO SHERWIN FEBRUARY.
[2022-07-30 21:30] VITALS: BP 156/68
--- NOTE | 2022-07-30 21:30 | NUR ---
MS SCHOOL COMMUNITY RELATIONS COORDINATOR NOTES RECEIVED PATIENT FROM ED AT 2108 VIA GURNEY UNDER THE CARE OF KLARISSA FONG WITH DX OF COMMUNITY-ACQUIRED PNEUMONIA, POSSIBLE COPD EXACERBATION AND ACUTE WEAKNESS. PATIENT IS A/O X4, AMBULATORY WITH A CANE. SHORT OF BREATH BUT NO RESPIRATORY DISTRESS. ON O2 AT 4LPM VIA NASAL CANULA. DENIES PAIN AT THIS TIME. HAS LEFT ANTECUBITAL IV ACCESS #18G AND SALINE LOCKED. NO S/S OF INFILTRATION NOTED. PHYSICAL ASSESSMENT DONE. VS TAKEN. DAUGHTER ARRIVED, DISCUSSED WITH HER THE PLAN OF CARE, VERBALIZED UNDERSTANDING. ALL BELONGINGS ACCOUNTED FOR. ORIENTED PATIENT TO ROOM AND STAFF. REMINDED TO CALL STAFF FOR ASSISTANCE WHEN GOING TO THE RESTROOM. SAFETY PRECAUTIONS IN PLACE: BED LOW AND LOCKED, SIDE RAILS UP X3, CALL LIGHT WITHIN REACH. WILL CONTINUE POC.
--- NOTE | 2022-07-30 22:06 | NUR ---
MS RN NOTES PATIENT REQUESTING FOR SLEEPING PILL. NOTIFIED VIKTOR CYR WITH NEW ORDER OF AMBIEN 5MG PO HS PRN. NOTED AND CARRIED OUT.
[2022-07-30] MEDS: methylPREDNISolone SOD SUCC 40 MG/ML VIAL IV SCH (22:08)
[2022-07-30] MEDS: ZOLPIDEM TARTRATE 5 MG TABLET PO PRN (22:25)
--- NOTE | 2022-07-30 22:45 | NUR ---
TRANSFERRED TO ROOM
[2022-07-30] MEDS ORDERED: MAG HYDROX/AL HYDROX/SIMETH 30 ML UDC PO PRN (23:00)
[2022-07-30] MEDS ORDERED: HYDROCODONE/APAP 5/325MG TABLET PO PRN (23:00)
[2022-07-30] MEDS ORDERED: ONDANSETRON HCL/PF 4 MG/2 ML VIAL IVP PRN (23:00)
[2022-07-30] MEDS ORDERED: MORPHINE SULFATE INJ 2 MG/ML DISP.SYRIN IV PRN (23:00)
[2022-07-30] MEDS ORDERED: Z GUARD REMEDY 4 OZ OINT TP PRN (23:00)
[2022-07-30] MEDS ORDERED: MAGNESIUM HYDROXIDE 30 ML UDC PO PRN (23:00)
[2022-07-30] MEDS ORDERED: ZOLPIDEM TARTRATE 5 MG TABLET PO PRN (23:00)
[2022-07-30] MEDS ORDERED: ACETAMINOPHEN 325 MG TABLET PO PRN (23:00)
[2022-07-31] MEDS: methylPREDNISolone SOD SUCC 40 MG/ML VIAL IV SCH ×3 (05:22→20:43)
[2022-07-31 06:00] LABS: BASOPHILS % (AUTO) 0.2 % (0.0-2.0); EOSINOPHILS % (AUTO) 0.1 % (0.0-6.0); HEMATOCRIT 47 % (39-51); HEMOGLOBIN 15.7 g/dL (13.5-17.5); LYMPHOCYTES # (AUTO) 0.6 K/uL (0.8-4.8); LYMPHOCYTES % (AUTO) 20.9 % (20.0-44.0); MEAN CORPUSCULAR HGB CONC 34 g/dl (31.0-36.0); MEAN CORPUSCULAR VOLUME 90 fL (80-96); MONOCYTES # (AUTO) 0.1 K/uL (0.1-1.30); MONOCYTES % (AUTO) 2.5 % (2.0-12.0); NEUTROPHILS % (AUTO) 76.3 % (43.0-81.0); PLATELET COUNT (AUTO) 124 K/uL (150-450); RED BLOOD CELL COUNT(AUTO) 5.18 MIL/uL (4.5-6.0); WHITE BLOOD COUNT (AUTO) 2.7 K/uL (4.3-11.0)
--- NOTE | 2022-07-31 07:21 | NUR ---
MS RN CLOSING NOTES PATIENT IN BED AWAKE. A/O X4 WITH PERIODS OF CONFUSION. IN STABLE CONDITION THROUGHOUT THE NIGHT. NO RESPIRATORY DISTRESS. AFEBRILE. LEFT ANTECUBITAL IV ACCESS #18G INTACT, PATENT AND FLUSHING. ASSISTED TO RESTROOM, UNSTEADY GAIT. ALL DUE MEDS GIVEN AND NEEDS ATTENDED. SAFETY PRECAUTIONS MAINTAINED. WILL ENDORSE TO NEXT SHIFT FOR HUANG.
[2022-07-31] MEDS: LEVOTHYROXINE SODIUM 25 MCG TABLET PO SCH (07:47)
[2022-07-31] MEDS: PANTOPRAZOLE 40 MG TABLET.DR PO SCH (07:47)
--- NOTE | 2022-07-31 07:57 | NUR ---
RN OPENING NOTE- PATIENT IN BED AWAKE. A/O X PERSON PLACE, MILDLY CONFUSED, . IN STABLE CONDITION THROUGHOUT THE NIGHT. NO RESPIRATORY DISTRESS. AFEBRILE. LEFT ANTECUBITAL IV ACCESS #18G INTACT, O2 CANULA OFF PT. O2 SATS 93%, PLACED NC ON PT W 4LPM O2. NEEDS ATTENDED. SAFETY PRECAUTIONS MAINTAINED. MONITOR / ASSIST
[2022-07-31 08:00] VITALS: BP 163/76
[2022-07-31 08:28] LABS: CALCIUM, SERUM 8.6 mg/dL (8.5-10.1); CARBON DIOXIDE 24 mmol/L (21-32); CHLORIDE 103 mmol/L (98-107); CREATININE 0.8 mg/dL (0.6-1.3); GLUCOSE 155 mg/dL (74-106); MAGNESIUM 2.1 mg/dL (1.8-2.4); PHOSPHORUS 3.3 mg/dL (2.5-4.9); SODIUM SERUM 134 mmol/L (136-145); UREA NITROGEN, BLOOD 8 mg/dL (7-18)
[2022-07-31 08:40] LABS: CHOLESTEROL 136 mg/dL (<200); HDL CHOLESTEROL 52 mg/dL (40-60); LDL 78 mg/dL (0-99); THYROID STIMULATING HORMONE 1.766 uIU/mL (0.358-3.74); TRIGLYCERIDES 46 mg/dL (30-150)
[2022-07-31] MEDS ORDERED: CEFTRIAXONE 1 G in IV D5W 50 ML IV SCH (09:00)
[2022-07-31] MEDS ORDERED: AZITHROMYCIN 250 MG TABLET PO SCH (09:00)
[2022-07-31] MEDS: CALCIUM CARB 250MG /VITAMIN D 1 UDTAB PO SCH (09:10)
[2022-07-31] MEDS: FOLIC ACID 1 MG TABLET PO SCH (09:10)
[2022-07-31] MEDS: THIAMINE HCL 100 MG TABLET PO SCH (09:10)
[2022-07-31] MEDS: LOSARTAN POTASSIUM 25 MG TABLET PO SCH (09:11)
[2022-07-31] MEDS: DONEPEZIL 5 MG TABLET PO SCH (09:11)
[2022-07-31] MEDS: IPRATROPIUM NEB FS 0.5 MG/2.5 ML AMPUL.NEB NEB SCH ×4 (09:30→20:26)
--- NOTE | 2022-07-31 10:40 | NUR ---
RN NOTE - PER DR. BARRIENTOS WEAN OXYGEN FROM 4 TO 2L. PT IS NOW ON 2L NC, SAT @94%.
[2022-07-31] MEDS: DOCUSATE SODIUM LIQ 100 MG/10 ML UDC PO SCH ×2 (11:19→16:53)
[2022-07-31] MEDS: POLYETHYLENE GLYCOL 3350 17 GM POWD.PACK PO SCH (11:19)
--- NOTE | 2022-07-31 11:29 | NUR ---
RN NOTE - RT AT BEDSIDE [facility] TX FOR TREATMENT. OXYGEN SAT 97%, AT 2L VIA NC.
[2022-07-31] MEDS: CEFTRIAXONE 1 G in IV D5W 50 ML IV SCH (15:22)
[2022-07-31] MEDS: ALBUTEROL HALF STRENGTH 1.25 MG/3 ML VIAL.NEB NEB SCH ×2 (15:50→20:26)
[2022-07-31 16:00] VITALS: BP 148/89
[2022-07-31] MEDS: HEPARIN SODIUM, PORCINE 5000 UNITS/1 ML VIAL SQ SCH (16:55)
--- NOTE | 2022-07-31 18:55 | NUR ---
RN CLOSING NOTE- PATIENT IN BED AWAKE. A/O X PERSON PLACE, MILDLY CONFUSED. NO RESPIRATORY DISTRESS. LEFT ANTECUBITAL IV ACCESS #18G INTACT. O2 SATS 97%. PT ON 2LPM VIA NC. STARTS IV ZITHROMAX IN AM. NEEDS ATTENDED. SAFETY PRECAUTIONS MAINTAINED. BED LOCKED AND AT LOWEST POSITION, RAILS UP X2, CALL ALMONTE WITHIN REACH. WILL ENDORSE TO NEXT SHIFT FOR HUANG.
[2022-07-31 20:00] VITALS: BP 136/63
--- NOTE | 2022-07-31 20:02 | NUR ---
MS RN OPENING NOTE PATIENT AWAKE IN BED, ALERT/ORIENTED X 2-3, PT ABLE TO MAKE NEEDS KNOWN. PT STABLE ON 2 LPM OF OXYGEN VIA NASAL CANNULA, NO S/S OF DISTRESS OR SOB NOTED, BREATHING EVEN AND UNLABORED. IV ACCES ON LAC #18G INTACT AND SALINE LOCKED. SAFETY MEASURES IN PLACE: CALL LIGHT WITHIN REACH, SIDE RAILS UP X 2, BED LOCKED IN LOWEST POSITION, BED ALARM ON. WILL CONTINUE TO MONITOR PATIENT
[2022-07-31] MEDS: ZOLPIDEM TARTRATE 5 MG TABLET PO PRN (20:43)
[2022-08-01] MEDS: IPRATROPIUM NEB FS 0.5 MG/2.5 ML AMPUL.NEB NEB SCH ×4 (02:16→20:11)
[2022-08-01] MEDS: ALBUTEROL HALF STRENGTH 1.25 MG/3 ML VIAL.NEB NEB SCH ×4 (02:16→20:11)
[2022-08-01] MEDS: methylPREDNISolone SOD SUCC 40 MG/ML VIAL IV SCH ×3 (05:35→20:46)
--- NOTE | 2022-08-01 07:02 | NUR ---
MS RN CLOSING NOTE PATIENT AWAKE IN BED, ALERT/ORIENTED X 3, PT ABLE TO MAKE NEEDS KNOWN. PT STABLE ON 2 LPM OF OXYGEN VIA NASAL CANNULA, NO S/S OF DISTRESS OR SOB NOTED, BREATHING EVEN AND UNLABORED. MEDICATIONS GIVEN ORDERED, PT NEEDS MET THROUGHOUT SHIFT. PATIENT SLEPT WELL THROUGH THE NIGHT, NO SIGNIFICANT CHANGES. SAFETY MEASURES IN PLACE: CALL LIGHT WITHIN REACH, SIDE RAILS UP X 2, BED LOCKED IN LOWEST POSITION, BED ALARM ON. WILL ENDORSE TO DAYSHIFT NURSE FOR CONTINUITY OF CARE
--- NOTE | 2022-08-01 07:45 | NUR ---
RN OPENING NOTE- PATIENT IN BED AWAKE. A/O X PERSON PLACE, TIME, PURPOSE, . IN STABLE CONDITION . NO RESPIRATORY DISTRESS. O2 SATS AT 99% ON 2LPM VIA NC, AFEBRILE. LEFT ANTECUBITAL IV ACCESS #18G INTACT, NEEDS ATTENDED. SAFETY PRECAUTIONS MAINTAINED. MONITOR / ASSIST
[2022-08-01 08:00] VITALS: BP 156/76
[2022-08-01] MEDS: POLYETHYLENE GLYCOL 3350 17 GM POWD.PACK PO SCH (08:15)
[2022-08-01] MEDS: THIAMINE HCL 100 MG TABLET PO SCH (08:16)
[2022-08-01] MEDS: FOLIC ACID 1 MG TABLET PO SCH (08:16)
[2022-08-01] MEDS: PANTOPRAZOLE 40 MG TABLET.DR PO SCH (08:16)
[2022-08-01] MEDS: DOCUSATE SODIUM LIQ 100 MG/10 ML UDC PO SCH ×2 (08:16→17:03)
[2022-08-01] MEDS: CALCIUM CARB 250MG /VITAMIN D 1 UDTAB PO SCH (08:16)
[2022-08-01] MEDS: DONEPEZIL 5 MG TABLET PO SCH (08:16)
[2022-08-01] MEDS: LEVOTHYROXINE SODIUM 25 MCG TABLET PO SCH (08:17)
[2022-08-01] MEDS: HEPARIN SODIUM, PORCINE 5000 UNITS/1 ML VIAL SQ SCH ×2 (08:19→17:03)
[2022-08-01] MEDS: LOSARTAN POTASSIUM 25 MG TABLET PO SCH (08:28)
[2022-08-01] MEDS: AZITHROMYCIN 500 MG in IV D5W 250 ML IV SCH (11:19)
[2022-08-01] MEDS: CEFTRIAXONE 1 G in IV D5W 50 ML IV SCH (15:13)
[2022-08-01 16:00] VITALS: BP 148/73
--- NOTE | 2022-08-01 19:31 | NUR ---
RN CLOSING NOTE- PATIENT IN BED AWAKE. A/O X PERSON PLACE PURPOSE. NO RESPIRATORY DISTRESS. LEFT ANTECUBITAL IV ACCESS #18G INTACT. O2 SATS 99%. PT ON 2LPM VIA NC. CONTINUED IV ZITHROMAX TODAY. MEDICATED FOR PAIN/ COMFORTABLE. COUGH PERSIST BUT LESSENED. NEEDS ATTENDED. SAFETY PRECAUTIONS MAINTAINED. BED LOCKED AND AT LOWEST POSITION, RAILS UP X2, CALL ALMONTE WITHIN REACH. WILL ENDORSE TO NEXT SHIFT FOR HUANG.
[2022-08-01 20:00] VITALS: BP 128/67
--- NOTE | 2022-08-01 20:14 | NUR ---
MS RN OPENING NOTE PATIENT AWAKE IN BED CURRENTLY UNDERGOING BREATHING TX, ALERT/ORIENTED X 3, PT ABLE TO MAKE NEEDS KNOWN. PT STABLE ON 2 LPM OF OXYGEN VIA NASAL CANNULA, NO S/S OF DISTRESS OR SOB NOTED, BREATHING EVEN AND UNLABORED. PATIENT STILL NOTED WITH COUGH. IV ACCES ON LAC #18G INTACT AND SALINE LOCKED. SAFETY MEASURES IN PLACE: CALL LIGHT WITHIN REACH, SIDE RAILS UP X 2, BED LOCKED IN LOWEST POSITION, BED ALARM ON. WILL CONTINUE TO MONITOR PATIENT
[2022-08-01] MEDS: ZOLPIDEM TARTRATE 5 MG TABLET PO PRN (20:46)
[2022-08-02] MEDS: IPRATROPIUM NEB FS 0.5 MG/2.5 ML AMPUL.NEB NEB SCH ×3 (01:48→13:30)
[2022-08-02] MEDS: ALBUTEROL HALF STRENGTH 1.25 MG/3 ML VIAL.NEB NEB SCH ×3 (01:48→13:30)
[2022-08-02] MEDS: methylPREDNISolone SOD SUCC 40 MG/ML VIAL IV SCH ×2 (05:42→13:09)
--- NOTE | 2022-08-02 06:25 | NUR ---
MS RN CLOSING NOTE PATIENT SLEEPING IN BED, PT ALERT/ORIENTED X 3 ALL SHIFT, PT ABLE TO MAKE NEEDS KNOWN. PT STABLE ON 2 LPM OF OXYGEN VIA NASAL CANNULA, NO S/S OF DISTRESS OR SOB NOTED, BREATHING EVEN AND UNLABORED. MEDICATIONS GIVEN ORDERED, PT NEEDS MET THROUGHOUT SHIFT. PATIENT SLEPT WELL THROUGH THE NIGHT, NO SIGNIFICANT CHANGES. SAFETY MEASURES IN PLACE: CALL LIGHT WITHIN REACH, SIDE RAILS UP X 2, BED LOCKED IN LOWEST POSITION, BED ALARM ON. WILL ENDORSE TO DAYSHIFT NURSE FOR CONTINUITY OF CARE
--- NOTE | 2022-08-02 07:20 | NUR ---
RN OPENING NOTES RECEIVED PATIENT IN BED, AWAKE, A/O X4, VERBALLY RESPONSIVE. NO SIGNS OF ACUTE DISTRESS NOTED. ON O2 @ 2LPM VIA N/C, NO SOB NOTED, BREATHING EVEN AND UNLABORED. DENIES ANY PAIN AT THIS TIME. NOTED WITH IV ACCESS ON LEFT AC #18G, INTACT AND PATENT SALINE LOCKED. SAFETY MEASURE IN PLACE. BED IN LOWEST AND LOCKED POSITION, SIDE RAILS UP X2, CALL LIGHT PLACED WITHIN EASY REACH. WILL CONTINUE TO MONITOR PATIENT.
--- NOTE | 2022-08-02 07:42 | NUR ---
RT NOTE Neb Tx (Atrovent) not given due to out of stock, contacting pharmacy.
[2022-08-02] MEDS ORDERED: LEVO750T46 PO (08:12)
[2022-08-02] MEDS ORDERED: PRED20TA PO (08:12)
--- NOTE | 2022-08-02 08:28 | NUR ---
MS RN NOTE RECEIVED A CALL FROM DR. COOPER. ORDERS MADE, VERIFIED AND CARRIED OUT. ENDORSED TO NURSE RAWLS.
[2022-08-02] MEDS: HEPARIN SODIUM, PORCINE 5000 UNITS/1 ML VIAL SQ SCH (08:47)
[2022-08-02] MEDS: POLYETHYLENE GLYCOL 3350 17 GM POWD.PACK PO SCH (08:49)
[2022-08-02] MEDS: CALCIUM CARB 250MG /VITAMIN D 1 UDTAB PO SCH (08:50)
[2022-08-02] MEDS: THIAMINE HCL 100 MG TABLET PO SCH (08:50)
[2022-08-02] MEDS: FOLIC ACID 1 MG TABLET PO SCH (08:50)
[2022-08-02] MEDS: DOCUSATE SODIUM LIQ 100 MG/10 ML UDC PO SCH (08:50)
[2022-08-02] MEDS: DONEPEZIL 5 MG TABLET PO SCH (08:50)
[2022-08-02] MEDS: LOSARTAN POTASSIUM 25 MG TABLET PO SCH (08:51)
[2022-08-02] MEDS: PANTOPRAZOLE 40 MG TABLET.DR PO SCH (08:52)
[2022-08-02] MEDS: LEVOTHYROXINE SODIUM 25 MCG TABLET PO SCH (08:52)
[2022-08-02 10:05] VITALS: BP 145/98
--- NOTE | 2022-08-02 10:25 | NUR ---
RN NOTE AMBULATED PATIENT ON ROOM AIR. SPO2 AT 94-96 %, NO SOB. DENIES ANY PAIN. DR. CHARLTON MADE AWARE. PER MD OK FOR PATIENT TO GO HOME.
[2022-08-02] MEDS: AZITHROMYCIN 500 MG in IV D5W 250 ML IV SCH (11:29)
--- NOTE | 2022-08-02 13:40 | NUR ---
FABRIC STRETCHER NOTE PATIENT DISCHARGED HOME IN STABLE CONDITION. PATIENT REMAINS AWAKE, A/O X4, VERBALLY RESPONSIVE AND ABLE TO MAKE NEEDS KNOWN. IV ACCESS ON LEFT REMOVED, NO BLEEDING NOTED, PRESSURE DRESSING APPLIED TO SITE. ARM NAME BAND REMOVED. EXIT CARE FOLDER GIVEN TO PATIENT, HEALTH TEACHINGS AND DISCHARGE INSTRUCTIONS PROVIDED TO PATIENT WITH VERBALIZATION OF UNDERSTANDING. PATIENT LEFT UNIT @1335 VIA W/C, ACCOMPANIED BY BOSTON DELGADO TO THE LOBBY. PATIENT PICKED UP BY DAUGHTER REJI VIA PRIVATE CAR. CN AWARE OF DISCHARGE.
== END 2022-08-02 14:33 | disposition home or self-care (01) | DRG 193 ==
LOC: ER 15:15 → MED 20:20
PROVIDERS: ADMIT Nurse Practitioner Acute Care; ATTEND Internal Medicine
DX: J12.9 Viral pneumonia, unspecified (principal); J96.01 Acute respiratory failure with hypoxia; J44.1 Chronic obstructive pulmonary disease with (acute) exacerbation; J44.0 Chronic obstructive pulmonary disease with (acute) lower respiratory infection; D72.819 Decreased white blood cell count, unspecified; E03.9 Hypothyroidism, unspecified; E66.3 Overweight; E78.5 Hyperlipidemia, unspecified; F02.80 Dementia in other diseases classified elsewhere, unspecified severity, without behavioral disturbance, psychotic disturbance, mood disturbance, and anxiety; G30.9 Alzheimer's disease, unspecified; F17.200 Nicotine dependence, unspecified, uncomplicated; I10 Essential (primary) hypertension; K21.9 Gastro-esophageal reflux disease without esophagitis; K59.00 Constipation, unspecified; M81.0 Age-related osteoporosis without current pathological fracture; Z20.822 Contact with and (suspected) exposure to COVID-19; Z79.890 Hormone replacement therapy; Z79.899 Other long term (current) drug therapy; Z82.49 Family history of ischemic heart disease and other diseases of the circulatory system; D64.9 Anemia, unspecified; F10.10 Alcohol abuse, uncomplicated; G89.29 Other chronic pain; M54.50 Low back pain, unspecified; M19.90 Unspecified osteoarthritis, unspecified site
CPT/HCPCS: 36415; 36600; 71045-TC; 80048-TC; 80061-TC; 80076-TC; 81001; 82140-TC; 83605-TC; 83735-TC; 84100-TC; 84443-TC; 84484-TC; 85025-TC; 85730-TC; 87040-TC; 87081-TC; 87086-TC; 94799-TC; C9803; G0378; G0480; J0456; J0696; J1644; J2920; J7050; J7060

== ENCOUNTER 2023-04-10 12:44 | Emergency (ER) | payer OTHER ==
[~2023-04-10] VITALS: Ht 170.2 cm; Wt 90.7 kg
[~2023-04-10 12:44] MED LIST changes: -ALEN70TA80 PO; -CEPH500C2 PO; -CHOL200059 PO; -CIPR-262 PO; -CIPR500T5 PO; -ENOX40DI SQ; -HYDR-3972 PO; -LEVO500T2 PO; +LEVO750T46 PO; +PRED20TA PO; -PRED50TA PO; -TAMS-12 PO
[2023-04-10 12:50] VITALS: BP 145/71; TEMP 98.5
--- NOTE | 2023-04-10 13:00 | NUR ---
RECEIVED PT 83RS MALE CAME FROM HOME C/O REDNESS AND PAINFULL IN BOTH BUTTCK NO HX TRUMA
--- NOTE | 2023-04-10 13:10 | NUR ---
Tran henry in [facility] - 04/10/23 at 1335 by JORGE L SEEN BY DR. CERVANTES
--- NOTE | 2023-04-10 13:15 | NUR ---
SEEN BY DR. MATHEWS
--- NOTE | 2023-04-10 13:17 | NUR ---
ACCUCHECH DONE 101MG/LD
[2023-04-10] MEDS ORDERED: FLUC100T8 PO (13:21)
[2023-04-10] MEDS ORDERED: SULF1TAB48 PO (13:21)
--- NOTE | 2023-04-10 13:28 | NUR ---
Patient discharged to home in stable condition. Written and verbal after care instructions given. Patient verbalizes understanding of instruction.
[2023-04-10 13:30] VITALS: O2SAT 97
== END 2023-04-10 13:37 | disposition home or self-care (01) ==
LOC: ER 12:58
DX: B35.9 Dermatophytosis, unspecified (principal); L03.317 Cellulitis of buttock; F02.80 Dementia in other diseases classified elsewhere, unspecified severity, without behavioral disturbance, psychotic disturbance, mood disturbance, and anxiety; G30.9 Alzheimer's disease, unspecified; I10 Essential (primary) hypertension; Z79.899 Other long term (current) drug therapy
CPT/HCPCS: 82962-TC

== ENCOUNTER 2024-05-13 15:39 | Emergency (ER) | payer OTHER ==
[~2024-05-13] VITALS: Ht 172.7 cm; Wt 81.6 kg
[~2024-05-13 15:39] MED LIST changes: +FLUC100T8 PO; +SULF1TAB48 PO
--- NOTE | 2024-05-13 15:55 | NUR ---
The patient bibfamily for c/o chest pain with cough and congestion since last night. In room air and denies SOB. Respiration regular and unlabored. Attached to the monitor.
--- NOTE | 2024-05-13 16:22 | NUR ---
covid swab collected and sent
[2024-05-13 16:37] LABS: BASOPHILS % (AUTO) 0.5 % (0.0-2.0); EOSINOPHILS % (AUTO) 0.1 % (0.0-6.0); HEMATOCRIT 43 % (39-51); HEMOGLOBIN 14.6 g/dL (13.5-17.5); LYMPHOCYTES # (AUTO) 0.9 K/uL (0.8-4.8); LYMPHOCYTES % (AUTO) 13.5 % (20.0-44.0); MEAN CORPUSCULAR HEMOGLOBIN 31 PG (26.0-33.0); MEAN CORPUSCULAR HGB CONC 34 g/dl (31.0-36.0); MEAN CORPUSCULAR VOLUME 90 fL (80-96); MONOCYTES # (AUTO) 0.7 K/uL (0.1-1.30); MONOCYTES % (AUTO) 10.5 % (2.0-12.0); NEUTROPHILS # (AUTO) 4.9 K/uL (1.8-8.9); NEUTROPHILS % (AUTO) 75.4 % (43.0-81.0); PLATELET COUNT (AUTO) 138 K/uL (150-450); RED BLOOD CELL COUNT(AUTO) 4.76 MIL/uL (4.5-6.0); RED CELL DISTRIBUTION WIDTH 13.8 % (11.5-15.0); WHITE BLOOD COUNT (AUTO) 6.5 K/uL (4.3-11.0)
[2024-05-13 16:55] LABS: CALCIUM, SERUM 8.6 mg/dL (8.5-10.1); CARBON DIOXIDE 24 mmol/L (21-32); CHLORIDE 99 mmol/L (98-107); CREATININE 0.8 mg/dL (0.6-1.3); GLUCOSE 90 mg/dL (74-106); POTASSIUM 3.9 mmol/L (3.5-5.1); SODIUM SERUM 132 mmol/L (136-145); UREA NITROGEN, BLOOD 8 mg/dL (7-18)
[2024-05-13 17:00] LABS: ALANINE AMINOTRANSFERASE 15 U/L (12-78); ALBUMIN 3.4 g/dL (3.4-5.0); ALKALINE PHOSPHATASE 84 U/L (46-116); ASPARTATE AMINOTRANSFERASE 16 U/L (15-37); BILIRUBIN,DIRECT 0.2 mg/dL (0.0-0.2); BILIRUBIN,TOTAL 0.6 mg/dL (0.2-1.0); TOTAL PROTEIN, SERUM 7.1 g/dL (6.4-8.2)
[2024-05-13 17:04] LABS: LACTIC ACID 2.2 mmol/L (0.4-2.0)
--- NOTE | 2024-05-13 17:27 | NUR ---
URINE COLLECTED AND SENT TO THE LAB
[2024-05-13 18:07] LABS: APPEARANCE,URINE CLEAR (CLEAR); BILIRUBIN,URINE NEGATIVE (NEGATIVE); BLOOD, URINE NEGATIVE Ery/uL (NEGATIVE); COLOR,URINE YELLOW (YELLOW); KETONES,URINE NEGATIVE (NEGATIVE); LEUKOCYTE ESTERASE ,URINE 1+ (NEGATIVE); NITRITE, URINE POSITIVE (NEGATIVE); PROTEIN,URINE NEGATIVE (NEGATIVE); UGLUCOSE NEGATIVE (NEGATIVE); UROBILINOGEN,URINE 0.2 EU/dL (0.2)
[2024-05-13 18:16] LABS: ADD URINE CULTURE YES; BACTERIA,URINE 2+ /HPF (None Seen); RBC,URINE 0-2 /HPF (0-2); SQUAMOUS EPITHELIAL CELL,UR Few /HPF (None Seen); WBC,URINE 21-50 /HPF (0-3)
[2024-05-13] MEDS ORDERED: CEFTRIAXONE 1GM BAG (ER ONLY) 50 ML IV ONE (18:59)
[2024-05-13] MEDS: CEFTRIAXONE 1GM BAG (ER ONLY) 1 GM/50 ML PIGGYBACK IV ONE (19:01)
--- NOTE | 2024-05-13 19:18 | NUR ---
report given to nurse Vivas for saima
[2024-05-13] MEDS ORDERED: CEPH500C2 PO (19:34)
[2024-05-13] MEDS ORDERED: BENZ-13 PO (19:34)
--- NOTE | 2024-05-13 19:50 | NUR ---
iv cannula removed
[2024-05-13 19:53] VITALS: BP 143/69; TEMP 97.9; O2SAT 96
--- NOTE | 2024-05-13 19:53 | NUR ---
Patient discharged to home in stable condition. Written and verbal after care instructions given. Patient verbalizes understanding of instruction.
== END 2024-05-13 19:53 | disposition home or self-care (01) ==
LOC: ER 15:47
DX: U07.1 COVID-19 (principal); N39.0 Urinary tract infection, site not specified; R53.1 Weakness; R05.9 Cough, unspecified; R09.81 Nasal congestion; I10 Essential (primary) hypertension; G30.9 Alzheimer's disease, unspecified; F02.80 Dementia in other diseases classified elsewhere, unspecified severity, without behavioral disturbance, psychotic disturbance, mood disturbance, and anxiety; Z86.79 Personal history of other diseases of the circulatory system; Z87.81 Personal history of (healed) traumatic fracture; Z87.828 Personal history of other (healed) physical injury and trauma
CPT/HCPCS: 99285; 96365; 71045; 87426; 93005; 85025; 80048; 87040 ×2; 87086; 83605 ×2; 80076; 81001; 36415; 84484 ×2; 83880; A4223; J0696

== ENCOUNTER 2024-12-06 17:09 | Inpatient (IN) | payer OTHER ==
[~2024-12-06] VITALS: Ht 188 cm; Wt 82.6 kg
[~2024-12-06 17:09] MED LIST changes: +BENZ-13 PO; +CEPH500C2 PO
[2024-12-06] MEDS ORDERED: ACETAMINOPHEN 325 MG TABLET ONE (18:08)
[2024-12-06] MEDS ORDERED: TDAP [DIPH/PERTUSSIS/TET] 0.5 ML VIAL IM ONE (18:09)
[2024-12-06] MEDS: LET SOLN TOPICAL 8 ML UDC TP ONE (18:16)
[2024-12-06] MEDS: ACETAMINOPHEN 325 MG TABLET PO ONE (18:17)
[2024-12-06] MEDS: TDAP [DIPH/PERTUSSIS/TET] 0.5 ML VIAL IM ONE (18:33)
[2024-12-06] MEDS ORDERED: LET SOLN TOPICAL 8 ML UDC TP ONE (19:24)
[2024-12-06] MEDS ORDERED: ACETAMINOPHEN 325 MG TABLET PO PRN (21:30)
[2024-12-06] MEDS ORDERED: MAG HYDROX/AL HYDROX/SIMETH 30 ML UDC PO PRN (21:30)
[2024-12-06] MEDS ORDERED: MORPHINE SULFATE INJ 2 MG/ML DISP.SYRIN IV PRN (21:30)
[2024-12-06] MEDS ORDERED: ONDANSETRON HCL/PF 4 MG/2 ML VIAL IVP PRN (21:30)
[2024-12-06 21:41] LABS: BASOPHILS # (AUTO) 0.1 K/uL (0.0-0.2); BASOPHILS % (AUTO) 1.2 % (0.0-2.0); EOSINOPHILS # (AUTO) 0.1 K/uL (0.0-0.7); EOSINOPHILS % (AUTO) 0.7 % (0.0-6.0); HEMATOCRIT 45 % (39-51); HEMOGLOBIN 15.2 g/dL (13.5-17.5); LYMPHOCYTES % (AUTO) 24.5 % (20.0-44.0); MEAN CORPUSCULAR HEMOGLOBIN 29 PG (26.0-33.0); MEAN CORPUSCULAR HGB CONC 34 g/dl (31.0-36.0); MEAN CORPUSCULAR VOLUME 87 fL (80-96); MONOCYTES # (AUTO) 0.5 K/uL (0.1-1.30); MONOCYTES % (AUTO) 6.1 % (2.0-12.0); NEUTROPHILS # (AUTO) 5.5 K/uL (1.8-8.9); NEUTROPHILS % (AUTO) 67.5 % (43.0-81.0); PLATELET COUNT (AUTO) 132 K/uL (150-450); RED BLOOD CELL COUNT(AUTO) 5.18 MIL/uL (4.5-6.0); RED CELL DISTRIBUTION WIDTH 14.4 % (11.5-15.0); WHITE BLOOD COUNT (AUTO) 8.1 K/uL (4.3-11.0)
[2024-12-06 21:53] LABS: CREATININE 0.8 mg/dL (0.6-1.3)
[2024-12-06 22:00] VITALS: BP 152/71; TEMP 97.5; O2SAT 96
[2024-12-06 22:05] LABS: INR 1.06 (0.91-1.10); PARTIAL THROMBOPLASTIN TIME 27.2 SEC (24.3-34.3); PROTHROMBIN TIME 11.2 SECS (9.2-11.1)
[2024-12-06 22:30] VITALS: BP 152/71; TEMP 97.5; O2SAT 96
[2024-12-07] MEDS: LEVOTHYROXINE SODIUM 25 MCG TABLET PO SCH (07:44)
[2024-12-07 07:45] LABS: BASOPHILS % (AUTO) 0.7 % (0.0-2.0); EOSINOPHILS % (AUTO) 0.7 % (0.0-6.0); HEMATOCRIT 43 % (39-51); HEMOGLOBIN 14.8 g/dL (13.5-17.5); LYMPHOCYTES # (AUTO) 1.3 K/uL (0.8-4.8); LYMPHOCYTES % (AUTO) 19.8 % (20.0-44.0); MEAN CORPUSCULAR HEMOGLOBIN 30 PG (26.0-33.0); MEAN CORPUSCULAR HGB CONC 34 g/dl (31.0-36.0); MEAN CORPUSCULAR VOLUME 87 fL (80-96); MONOCYTES # (AUTO) 0.4 K/uL (0.1-1.30); MONOCYTES % (AUTO) 6.1 % (2.0-12.0); NEUTROPHILS # (AUTO) 4.7 K/uL (1.8-8.9); NEUTROPHILS % (AUTO) 72.7 % (43.0-81.0); PLATELET COUNT (AUTO) 125 K/uL (150-450); RED BLOOD CELL COUNT(AUTO) 4.97 MIL/uL (4.5-6.0); RED CELL DISTRIBUTION WIDTH 14.2 % (11.5-15.0); WHITE BLOOD COUNT (AUTO) 6.5 K/uL (4.3-11.0)
[2024-12-07 08:00] VITALS: BP 160/74; TEMP 97.5; O2SAT 96
[2024-12-07] MEDS: ENOXAPARIN SODIUM 40 MG/0.4 ML DISP.SYRIN SQ SCH (08:30)
[2024-12-07] MEDS: FOLIC ACID 1 MG TABLET PO SCH (08:31)
[2024-12-07] MEDS: DONEPEZIL 5 MG TABLET PO SCH (08:31)
[2024-12-07] MEDS: LOSARTAN POTASSIUM 25 MG TABLET PO SCH (08:31)
[2024-12-07] MEDS: CALCIUM CARB 600MG /VIT D 1 EACH TABLET PO SCH (08:31)
[2024-12-07 08:32] LABS: CALCIUM, SERUM 9.1 mg/dL (8.5-10.1); CREATININE 0.8 mg/dL (0.6-1.3); MAGNESIUM 2.6 mg/dL (1.8-2.4); PHOSPHORUS 3.8 mg/dL (2.5-4.9); POTASSIUM 4.1 mmol/L (3.5-5.1)
[2024-12-07] MEDS: POLYVINYL ALCOHOL 15 ML BOTTLE EACHEYE PRN (14:13)
[2024-12-07 16:00] VITALS: BP 157/68; TEMP 98.6; O2SAT 96
[2024-12-07 20:00] VITALS: BP 133/62; TEMP 97.9; O2SAT 95
[2024-12-07] MEDS: HYDROCODONE/APAP 5/325MG TABLET PO PRN (20:26)
[2024-12-08 07:28] LABS: BASOPHILS % (AUTO) 0.2 % (0.0-2.0); EOSINOPHILS # (AUTO) 0.1 K/uL (0.0-0.7); EOSINOPHILS % (AUTO) 0.7 % (0.0-6.0); HEMATOCRIT 43 % (39-51); HEMOGLOBIN 14.7 g/dL (13.5-17.5); LYMPHOCYTES # (AUTO) 1.2 K/uL (0.8-4.8); LYMPHOCYTES % (AUTO) 15.8 % (20.0-44.0); MEAN CORPUSCULAR HEMOGLOBIN 30 PG (26.0-33.0); MEAN CORPUSCULAR HGB CONC 34 g/dl (31.0-36.0); MEAN CORPUSCULAR VOLUME 87 fL (80-96); MONOCYTES # (AUTO) 0.5 K/uL (0.1-1.30); MONOCYTES % (AUTO) 6.6 % (2.0-12.0); NEUTROPHILS # (AUTO) 5.8 K/uL (1.8-8.9); NEUTROPHILS % (AUTO) 76.7 % (43.0-81.0); PLATELET COUNT (AUTO) 121 K/uL (150-450); RED BLOOD CELL COUNT(AUTO) 4.92 MIL/uL (4.5-6.0); RED CELL DISTRIBUTION WIDTH 14.3 % (11.5-15.0); WHITE BLOOD COUNT (AUTO) 7.5 K/uL (4.3-11.0)
[2024-12-08 07:32] LABS: CREATININE 0.8 mg/dL (0.6-1.3); MAGNESIUM 2.5 mg/dL (1.8-2.4); PHOSPHORUS 3.7 mg/dL (2.5-4.9); POTASSIUM 4.1 mmol/L (3.5-5.1)
[2024-12-08 08:00] VITALS: BP 140/69; TEMP 97.7; O2SAT 95
[2024-12-08 08:53] VITALS: BP 140/69
== END 2024-12-08 17:35 | disposition home or self-care (01) | DRG 552 ==
LOC: ER 17:27 → TELE 21:28 → MED 21:33
PROVIDERS: ADMIT Nurse Practitioner Acute Care; ATTEND Nurse Practitioner Acute Care
PROC: 0HQ0XZZ Repair Scalp Skin, External Approach (ICD-10-PCS; principal; 2024-12-06)
DX: M48.061 Spinal stenosis, lumbar region without neurogenic claudication (principal); M80.08XA Age-related osteoporosis with current pathological fracture, vertebra(e), initial encounter for fracture; F02.80 Dementia in other diseases classified elsewhere, unspecified severity, without behavioral disturbance, psychotic disturbance, mood disturbance, and anxiety; G30.9 Alzheimer's disease, unspecified; W18.2XXA Fall in (into) shower or empty bathtub, initial encounter; S01.01XA Laceration without foreign body of scalp, initial encounter; E03.9 Hypothyroidism, unspecified; E78.5 Hyperlipidemia, unspecified; G89.29 Other chronic pain; I10 Essential (primary) hypertension; M54.9 Dorsalgia, unspecified; Y93.E1 Activity, personal bathing and showering; Z82.49 Family history of ischemic heart disease and other diseases of the circulatory system; Y92.009 Unspecified place in unspecified non-institutional (private) residence as the place of occurrence of the external cause
CPT/HCPCS: 36415; 70450-TC; 71045-TC; 72125-TC; 72131-TC; 72148-TC; 72170-TC; 80048-TC; 83735-TC; 84100-TC; 85025-TC; 85730-TC; 87081-TC; 90715; 97112-TC; 97116-TC; 97530-TC; G0378; J1650

== ENCOUNTER 2024-12-16 10:56 | Emergency (ER) | payer OTHER ==
[~2024-12-16] VITALS: Ht 180.3 cm; Wt 81.6 kg
[~2024-12-16 10:56] MED LIST changes: -BENZ-13 PO; -CEPH500C2 PO; -FLUC100T8 PO; -LEVO750T46 PO; -PRED20TA PO; -SULF1TAB48 PO
[2024-12-16 11:01] VITALS: BP 156/74; TEMP 98.1; O2SAT 99
== END 2024-12-16 12:11 | disposition home or self-care (01) ==
LOC: ER 11:04
DX: S01.01XD Laceration without foreign body of scalp, subsequent encounter (principal); Z48.02 Encounter for removal of sutures; I10 Essential (primary) hypertension; F02.80 Dementia in other diseases classified elsewhere, unspecified severity, without behavioral disturbance, psychotic disturbance, mood disturbance, and anxiety; G30.9 Alzheimer's disease, unspecified; Z79.899 Other long term (current) drug therapy; X58.XXXD Exposure to other specified factors, subsequent encounter

== ENCOUNTER 2025-08-15 08:56 | Emergency (ER) | payer OTHER ==
[~2025-08-15] VITALS: Ht 172.7 cm; Wt 89.8 kg
[2025-08-15] MEDS ORDERED: ACETAMINOPHEN ES 500 MG TABLET ONE (09:30)
[2025-08-15] MEDS: ACETAMINOPHEN ES 500 MG TABLET PO ONE (09:53)
[2025-08-15 12:09] VITALS: BP 143/80; TEMP 98.2; O2SAT 99
== END 2025-08-15 12:10 | disposition home or self-care (01) ==
LOC: ER 08:57
DX: M54.2 Cervicalgia (principal); E78.5 Hyperlipidemia, unspecified; F02.80 Dementia in other diseases classified elsewhere, unspecified severity, without behavioral disturbance, psychotic disturbance, mood disturbance, and anxiety; G30.9 Alzheimer's disease, unspecified; I11.9 Hypertensive heart disease without heart failure; Z79.899 Other long term (current) drug therapy; W01.0XXA Fall on same level from slipping, tripping and stumbling without subsequent striking against object, initial encounter; Y93.89 Activity, other specified; Y92.89 Other specified places as the place of occurrence of the external cause; Y99.9 Unspecified external cause status
CPT/HCPCS: 70450-TC; 72125-TC; 72128-TC; 72131-TC